=== PATIENT | female | born 1955 | race Caucasian/White ===

== ENCOUNTER → 2018-03-24 06:41 | Outpatient (CLI) | payer OTHER, SELFPAY ==
[2018-03-24 07:02] LABS: Mucous, Urine 0 SEEN /hpf (<or=2+)
[2018-03-24 08:11] LABS: Color, Urine Yellow (Yellow); Glucose, Dipstick Normal (Normal); Ketone-Dipstick Negative (Negative); Leukocyte Esterase-Dipstick 25 /ul (Negative); Nitrite-Dipstick Negative (Negative); Occult Blood-Urine 25 /ul (Negative); Protein-Dipstick 15 mg/dl (Negative); Specific Gravity, Urine 1.025 (1.002-1.030); Urine Bilirubin Dipstick Negative (Negative); Urine Clarity Clear (Clear); Urine Urobilinogen Normal (Normal)
[2018-03-24 08:18] LABS: Bacteria 1+ /hpf (None Seen); Red Blood Cells-Urine 0-5 SEEN /hpf (0-5); Squamous Epithelial Cells - UA 10-25 SEEN /hpf (5-10); White Blood Cells 0-5 SEEN /hpf (0-5)
[2018-03-24 08:31] LABS: ALB/GLOB Ratio 0.8 RATIO (0.9-2.4); AST(SGOT) 33 U/L (15-37); Alanine Aminotransfer ALT/SGPT 62 U/L (13-56); Albumin, Serum 3.5 g/dL (3.2-5.0); Alkaline Phosphatase 72 U/L (45-117); Anion Gap 11 (5-15); BUN 16 mg/dL (7-18); BUN/Creat Ratio 22.6 RATIO (10-20); Calcium,Total 8.5 mg/dL (8.5-10.1); Chloride 105 mmol/L (98-107); Creatinine, Serum 0.71 mg/dL (0.55-1.02); EST Glomerular Filtration Rate 88 mL/min (>60); Est Glom Filt Rate - Afr Amer 107 mL/min (>60); Globulin 4.2 g/dL (2.2-4.2); Glucose 200 mg/dL (74-106); Potassium 4.3 mmol/L (3.5-5.1); Protein, Total 7.7 g/dL (6.4-8.2); Sodium Level 140 mmol/L (136-145)
[2018-03-24 08:40] LABS: Hemoglobin A1c 7.4 % (4.2-6.3)
== END ==
PROVIDERS: Family Provider Family Medicine; PCP Family Medicine; Visit Provider Family Medicine
DX: E11.9 Type 2 diabetes mellitus without complications (principal); I10 Essential (primary) hypertension
CPT/HCPCS: 36415; 80053; 81001; 83036

== ENCOUNTER → 2018-09-21 08:41 | Outpatient (CLI) | payer SELFPAY ==
[2018-09-21 08:17] VITALS: BMI 43.0
[2018-09-21 08:44] LABS: Mucous, Urine 0 SEEN /hpf (<or=2+); Red Blood Cells-Urine 0 SEEN /hpf (0-5); White Blood Cells 0 SEEN /hpf (0-5)
[2018-09-21 13:41] LABS: Color, Urine Yellow (Yellow); Glucose, Dipstick Normal (Normal); Ketone-Dipstick Negative (Negative); Leukocyte Esterase-Dipstick Negative /ul (Negative); Nitrite-Dipstick Negative (Negative); Occult Blood-Urine 10 /ul (Negative); Protein-Dipstick Negative (Negative); Urine Bilirubin Dipstick Negative (Negative); Urine Clarity Sl. Cloudy (Clear); Urine Urobilinogen Normal (Normal)
[2018-09-21 13:42] LABS: Squamous Epithelial Cells - UA 0-5 SEEN /hpf (5-10)
[2018-09-21 13:43] LABS: Bacteria RARE /hpf (None Seen)
== END ==
PROVIDERS: Family Provider Family Medicine; PCP Family Medicine; Visit Provider Nurse Practitioner Family
DX: R10.9 Unspecified abdominal pain (principal)
CPT/HCPCS: 81001; 87086; 87088

== ENCOUNTER → 2018-09-23 08:36 | Outpatient (CLI) | payer OTHER, SELFPAY ==
[2018-09-21 08:17] VITALS: BMI 43.0
== END ==
PROVIDERS: Family Provider Family Medicine; PCP Family Medicine; Referring Provider Nurse Practitioner Family; Visit Provider Nurse Practitioner Family
DX: R10.9 Unspecified abdominal pain (principal)
CPT/HCPCS: 87086; 87088

== ENCOUNTER → 2018-12-21 | Outpatient (CLI) | payer OTHER, SELFPAY ==
[2018-12-13 09:00] VITALS: BMI 43.0
--- NOTE | 2018-12-21 10:10 | RAD_ITS ---
STUDY: X-RAY - CERVICAL SPINE REASON FOR EXAM: Female, 63 years old. Left-sided neck pain. No known injury. TECHNIQUE: 5 view(s) of the cervical spine were obtained including oblique views. COMPARISON: None FINDINGS: Normal anterior atlantoaxial articulation. Normal odontoid process. There is straightening of the normal cervical lordosis. There is multi-level endplate spondylosis. There is multi-level degenerative disc disease with multilevel disc space narrowing. Normal visualized intervertebral neuroforamina. The soft tissue structures are unremarkable. RAD/Cerv Spine 4 or 5 Views IMPRESSION: Multilevel spondylosis and disc space narrowing. No neural foraminal stenosis is seen. Electronically Signed: Cecilio Yoo, at 10:16 EDT , Service support ,
== END | disposition home or self-care (01) ==
LOC: RAD 10:08
PROVIDERS: Family Provider Family Medicine; PCP Family Medicine; Referring Provider Family Medicine; Visit Provider Family Medicine
DX: M54.2 Cervicalgia (principal)
CPT/HCPCS: 72050

== ENCOUNTER → 2019-07-11 11:00 | Outpatient (CLI) | payer MEDICARE, SELFPAY ==
[2019-07-11 10:44] VITALS: BMI 43.0
[2019-07-11 12:52] LABS: ALB/GLOB Ratio 0.8 RATIO (0.9-2.4); AST(SGOT) 73 U/L (15-37); Alanine Aminotransfer ALT/SGPT 114 U/L (13-56); Albumin, Serum 3.6 g/dL (3.2-5.0); Alkaline Phosphatase 93 U/L (45-117); Anion Gap 7 (5-15); BUN 15 mg/dL (7-18); BUN/Creat Ratio 17.7 RATIO (10-20); Calcium,Total 8.7 mg/dL (8.5-10.1); Chloride 101 mmol/L (98-107); Creatinine, Serum 0.85 mg/dL (0.55-1.02); EST Glomerular Filtration Rate 72 mL/min (>60); Est Glom Filt Rate - Afr Amer 87 mL/min (>60); Globulin 4.3 g/dL (2.2-4.2); Glucose 335 mg/dL (74-106); Potassium 4.2 mmol/L (3.5-5.1); Protein, Total 7.9 g/dL (6.4-8.2); Sodium Level 134 mmol/L (136-145)
== END ==
PROVIDERS: Family Provider Family Medicine; PCP Family Medicine; Visit Provider Family Medicine
DX: E11.9 Type 2 diabetes mellitus without complications (principal)
CPT/HCPCS: 36415; 80053

== ENCOUNTER → 2019-08-01 07:19 | Outpatient (CLI) | payer MEDICARE, SELFPAY ==
[2019-07-11 10:44] VITALS: BMI 43.0
--- NOTE | 2019-08-01 07:00 | BI_ITS ---
MAMMOGRAPHY - BILATERAL SCREENING REASON FOR EXAM: Female, 64 years old. Routine annual screening examination. PERTINENT HISTORY: Mother with breast cancer. History of remote bilateral breast reduction surgeries. TECHNIQUE: Digital bilateral breast cristhian (3D mammographic acquisition) in the CC and MLO projections. 2-D mediolateral oblique (MLO) and craniocaudad (CC) views of both breasts were obtained. CAD: Full Field Digital Mammography with Computer Added Detection was performed. COMPARISON: Comparison is made with prior outside examination dated September 15, 2011. FINDINGS: Breast Composition: The breasts are almost entirely fatty. Focal cluster microcalcification seen in the deep upper lateral aspect of the left breast. The patient will be recalled for additional views including magnification spot views. Stable benign appearing bilateral axillary lymph nodes. No other significant abnormalities are identified. BI/SCREEN MAMM (CAD) W/CRISTHIAN BILAT IMPRESSION: Cluster microcalcifications in the deep upper lateral aspect of the left breast as described. The patient will be recalled for additional views. Recall Side: Left Breast ASSESSMENT CATEGORY: BIRADS Category 0: Incomplete. Need additional imaging evaluation. A letter regarding these results will be sent to the patient by the facility within 30 days. Approximately 10% of breast cancers are not detected by mammography. A normal mammogram should not delay biopsy of a clinically suspicious abnormality. [id number] Electronically Signed: Cecilio Yoo, at 15:29 EST , Service support ,
--- NOTE | 2019-08-01 07:20 | US_ITS ---
STUDY: ABDOMINAL ULTRASOUND - RIGHT UPPER QUADRANT REASON FOR VISIT: Female, 64 years old ELEVATED LFTS TECHNIQUE: Ultrasound evaluation of the right upper quadrant was performed with real-time and static knight-scale imaging. TECHNICAL QUALITY: Adequate. COMPARISON: None. FINDINGS: Liver: The liver measures 16.6 cm. There is increased echogenicity of the liver. The bile ducts are within normal limits. There is hepatic color flow. The direction of portal flow is hepatopetal. There is no demonstrated mass lesion. Gallbladder: The patient is status post cholecystectomy. Common Bile Duct (C.B.D.): The common bile duct measures 8.7 mm. Pancreas: There is normal echogenicity of the visualized pancreas. There is no demonstrated pancreatic mass or cyst. Right Kidney: Normal size of the right kidney. The right kidney measures 13.0 x 5.3 x 3.9 cm. Normal renal cortex. The right cortex measures 1.9 cm. There is no demonstrated renal mass or cyst. There is no right hydronephrosis. US/Liver IMPRESSION: 1. Cholecystectomy 2. Increased echogenicity of the liver is nonspecific but most commonly associated with hepatic steatosis. Electronically Signed: Erlin Salgado MD ([place]) at 14:48 EST , Service support ,
== END ==
PROVIDERS: Family Provider Family Medicine; PCP Family Medicine; Referring Provider Family Medicine; Visit Provider Family Medicine
DX: R74.8 Abnormal levels of other serum enzymes (principal); Z12.31 Encounter for screening mammogram for malignant neoplasm of breast
CPT/HCPCS: 76705; 77063; 77067

== ENCOUNTER → 2019-08-04 13:49 | Outpatient (CLI) | payer MEDICARE, SELFPAY ==
[2019-07-11 10:44] VITALS: BMI 43.0
--- NOTE | 2019-08-04 13:49 | BI_ITS ---
MAMMOGRAPHY - UNILATERAL DIAGNOSTIC: LEFT BREAST REASON FOR EXAM: Female, 64 years old. Abnormal screening mammogram. PERTINENT HISTORY: Mother with breast cancer. TECHNIQUE: Magnification spot views of the left breast were obtained. CAD: Full Field Digital Mammography with Computer Added Detection was performed. COMPARISON: Comparison is made with prior examination dated January 30, 2020. FINDINGS: Breast Composition: The breasts are almost entirely fatty. The microcalcifications are once again seen. These are not definitely vascular in nature. A biopsy is recommended. No other significant abnormalities are identified. BI/DIAG MAMM W/CAD, UNILAT IMPRESSION: Microcalcifications are once again visualized. A biopsy is recommended. ASSESSMENT CATEGORY: BIRADS Category 4: Suspicious - Biopsy Should Be Considered. A letter regarding these results will be sent to the patient by the facility within 30 days. Approximately 10% of breast cancers are not detected by mammography. A normal mammogram should not delay biopsy of a clinically suspicious abnormality. Electronically Signed: Cecilio Yoo, at 14:40 EST , Service support ,
== END ==
PROVIDERS: Family Provider Family Medicine; PCP Family Medicine; Referring Provider Family Medicine; Visit Provider Family Medicine
DX: R92.8 Other abnormal and inconclusive findings on diagnostic imaging of breast (principal)
CPT/HCPCS: 77065

== ENCOUNTER → 2019-08-24 08:20 | Outpatient (CLI) | payer MEDICARE, SELFPAY ==
[2019-08-15 14:33] VITALS: BMI 43.0
[2019-08-17 14:54] VITALS: BMI 43.0
--- NOTE | 2019-08-24 09:00 | BRBX_PTH ---
PATIENT: DARIANA ORTEGA LOC: [facility] U#:[id number] AGE/SX: 69/F ROOM: RE08/24/[address]: Dr. Cecelia Mao MD : 1955 BED: DIS: SPEC #: [id number] RECD: 08/24/19 09:59 STATUS: ANNETTE DONA #: [id number] JESSICA: 08/24/19 09:[address]: Cecelia Mao DEPT: SURGICAL PATHOLOGY RECD BY: Jerome Contreras ENTERED: 08/24/19 10:39 SP TYPE: BREAST BX OT DR: Dr. Kj Johnson DO Tissues: Left breast, NOS Procedures: Surgery Specimen Level IV HEADER OPERATION: Left stereotactic breast biopsy PRE-OP DIAGNOSIS: Left deep upper lateral breast microcalcifications TISSUE SUBMITTED: Left breast core tissue ISCHEMIC TIME: 1 minute FIXATION TIME: 10 hours MICROSCOPIC DIAGNOSIS Left breast, deep upper lateral microcalcifications, stereotactic core biopsy: A minute fragment of hyalinized fibroadenoma with microcalcifications. Negative for atypia or malignancy. See comment. PETER:skyler 08/25/19 COMMENT The specimen predominantly consists of fatty benign breast tissue. Correlation with clinical, radiologic findings and appropriate follow up are necessary. MICROSCOPIC DESCRIPTION Slides are reviewed. GROSS DESCRIPTION Received is one container labeled with the patient's name and not further designated. The specimen consists of multiple elongated fragments of salamanca-yellow fibroadipose tissue that in aggregate measure 7.5 x 3 x 0.6 cm. The entire specimen is submitted in five cassettes. / PETER:skyler 08/24/19 TC:1 CPT: 57276
--- NOTE | 2019-08-24 09:30 | PCM.OPRPT ---
Report of Operation Date of Procedure: 08/24/19 Pre-Operative Diagnosis: Left breast microcalcifications?deep lateral upper Post-Operative Diagnosis: Same Surgery/Procedure Performed:: Stereotactic guided left breast biopsy Type of Anesthesia:: Local Specimen's removed: Left breast calcifications?upper lateral deep Estimated Blood Loss (mL): Minimal Description of Procedure: Procedure: Left stereotactic core biopsy Indications: 64 year-old female with microcalcifications in the upper lateral deep aspect of the left breast. Risk benefits were discussed the patient and she elected to proceed with stereotactic core biopsy with clip placement Description of procedure: Patient was brought into the mammography suite and laid prone on the stereotactic table. A timeout was completed verifying correct patient, procedure, site, specially, prior to beginning procedure. The left breast was prepped and draped in usual sterile fashion and using local anesthesia was obtained with 1% lidocaine with epi. Patient's left breast was positioned and placed into compression. Initial film showed calcifications are in the center of the compression paddle. 15? views were then taken. The calcifications were localized. The left breast was prepped draped in usual sterile fashion. An 8-gauge mammotome was set up according to the digital coordinates. The tract of the mammotome was anesthetized with local anesthesia and an incision was made with the 11 blade scalpel at the entry site. The mammotome was advanced to the prefire state. Pre-prior films were checked and verified. The mammotome was fired. Post fire films were also checked and verified. Biopsies were taken from 6:00 to 11:00. The specimen was x-rayed and it did not show any calcifications repeat 15 degree angle views were taken. The mammotome was advanced 5 mm and again repeat post fire 15 degree views were taken. Biopsies were taken from 6:00 to 11:00. The specimen was x-rayed and it did what appeared to be all of the calcifications. Mammotome clip was placed at the 12 o'clock position-revolve twist. The mammotome was removed from the breast. An additional films were taken which showed all calcifications were removed and a clip was in place. Pressure was held for hemostasis. Once hemostasis was assured the wound was dressed with Steri-Strips and OpSite. Patient also underwent 2 view mammography for clip verification. The patient tolerated the procedure well and was discharged from the mammography suite good condition. complications: none - Complications none
== END ==
LOC: BIRAD 08:20
PROVIDERS: PCP Family Medicine; Referring Provider Surgery; Visit Provider Surgery
DX: D24.2 Benign neoplasm of left breast (principal); R92.0 Mammographic microcalcification found on diagnostic imaging of breast; I10 Essential (primary) hypertension; M19.90 Unspecified osteoarthritis, unspecified site; E11.9 Type 2 diabetes mellitus without complications; Z79.84 Long term (current) use of oral hypoglycemic drugs; Z79.82 Long term (current) use of aspirin; Z79.899 Other long term (current) drug therapy; Z87.891 Personal history of nicotine dependence
CPT/HCPCS: 19081; 88305; J7050; A4648

== ENCOUNTER → 2020-01-04 07:54 | Outpatient (CLI) | payer MEDICARE, SELFPAY ==
[2019-09-01 09:27] VITALS: BMI 43.0
[2019-12-22 09:29] VITALS: BMI 43.0
--- NOTE | 2020-01-04 07:54 | BI_ITS ---
MAMMOGRAPHY - UNILATERAL DIAGNOSTIC: LEFT BREAST REASON FOR EXAM: Female, 64 years old. Six-month follow-up of left breast biopsy. PERTINENT HISTORY: Mother with breast cancer. TECHNIQUE: Digital unilateral breast jarek (3D mammographic acquisition) in the CC and MLO projections. 2-D mediolateral oblique (MLO) and craniocaudad (CC) views of both breasts were obtained. CAD: Full Field Digital Mammography with Computer Added Detection was performed. COMPARISON: Comparison is made with prior study dated August 01, 2019 and August 04, 2019. FINDINGS: Breast Composition: The breasts are almost entirely fatty. There are no dominant masses or suspicious calcifications. A tissue clip marker is seen in the upper deep slightly lateral aspect of the breast. The previously seen cluster of microcalcifications have decreased in number. Stable benign-appearing left axillary lymph nodes. No other significant abnormalities are identified. BI/DIAG MAMM W/CAD, UNILAT IMPRESSION: Status post stereotactic biopsy of the calcifications in the upper deep slight lateral portion of the left breast as described. Decreased number of calcifications as compared to prior study.. One year follow-up mammogram recommended. (A) ASSESSMENT CATEGORY: BIRADS Category 2: Benign. A letter regarding these results will be sent to the patient by the facility within 30 days. Approximately 10% of breast cancers are not detected by mammography. A normal mammogram should not delay biopsy of a clinically suspicious abnormality. Electronically Signed: Cecilio Yoo, at 8:46 EDT , Service support ,
== END ==
PROVIDERS: PCP Family Medicine; Referring Provider Surgery; Visit Provider Surgery
DX: R92.1 Mammographic calcification found on diagnostic imaging of breast (principal)
CPT/HCPCS: 77065

== ENCOUNTER → 2020-05-14 16:10 | Outpatient (CLI) | payer MEDICARE, SELFPAY ==
[2020-05-14 15:40] VITALS: BMI 42.7
[2020-05-14 16:57] LABS: Erythrocyte Sedimentation Rate 19 mm/hr (0-30)
[2020-05-14 16:58] LABS: Absolute Lymphocyte Count 2.98 X10^3/uL (0.83-4.51); Absolute Neutrophil Count 4.9 X10^3/uL (2.0-7.7); Basophil# 0.03 X10^3/uL; Basophil% 0.3 % (0-1); Eosinophil# 0.19 X10^3/uL; Eosinophils% 2.1 % (0-5); Hematocrit 41.6 % (37-47); Hemoglobin 13.6 g/dL (12.0-15.0); Lymphocyte # 2.98 X10^3/ul (4.0); Lymphocyte % 33.2 % (19-41); Mean Corp Hgb Conc 32.7 g/dL (32-36); Mean Corpuscular Hgb 30.3 pg (27.0-32.0); Mean Corpuscular Volume 92.7 fL (81-99); Mean Platelet Vol. 9.7 fl (6.2-12.0); Monocyte% 8.9 % (0-10); NRBC Flagged by Analyzer 0 % (0-5); Neutrophil # 4.93 X10^3/uL (2.7-7.7); Neutrophil % 54.9 % (47-70); Platelet Count 312 K/mm3 (150-450); RBC Distribution Width CV 13.9 % (11.6-14.6); RBC Distribution Width SD 47.8 fl (35.1-43.9); Red Blood Count 4.49 M/mm3 (4.2-5.4)
[2020-05-14 17:16] LABS: ALB/GLOB Ratio 0.9 RATIO (0.9-2.4); AST(SGOT) 22 U/L (15-37); Alanine Aminotransfer ALT/SGPT 43 U/L (13-56); Albumin, Serum 3.7 g/dL (3.2-5.0); Alkaline Phosphatase 72 U/L (45-117); Anion Gap 5 (5-15); BUN 15 mg/dL (7-18); BUN/Creat Ratio 17.9 RATIO (10-20); Calcium,Total 9.2 mg/dL (8.5-10.1); Chloride 104 mmol/L (98-107); Creatinine, Serum 0.84 mg/dL (0.55-1.02); EST Glomerular Filtration Rate 72 mL/min (>60); Est Glom Filt Rate - Afr Amer 88 mL/min (>60); Globulin 4.3 g/dL (2.2-4.2); Glucose 105 mg/dL (74-106); Potassium 4.2 mmol/L (3.5-5.1); Sodium Level 138 mmol/L (136-145)
== END ==
PROVIDERS: PCP Family Medicine; Referring Provider Internal Medicine; Visit Provider Internal Medicine
DX: R10.31 Right lower quadrant pain (principal)
CPT/HCPCS: 36415; 74177; 80053; 85025; 85652; Q9967; A4216

== ENCOUNTER → 2020-05-14 16:38 | Outpatient (CLI) | payer MEDICARE, SELFPAY ==
[2020-05-14 15:40] VITALS: BMI 42.7
--- NOTE | 2020-05-14 18:45 | CT_ITS ---
STUDY: CT ABDOMEN AND PELVIS WITH CONTRAST REASON FOR EXAM: Female, 64 years old. Right lower quadrant pain. RADIATION DOSAGE (If Supplied By Facility): CTDIvol = ( 18.74 ) mGy, DLP = ( 1281.21 ) mGycm TECHNIQUE: Transaxial images were obtained from the dome of the diaphragm to the symphysis pubis with oral contrast. 100 ml of ISOVUE-300 contrast was administered. Sagittal and coronal images were reconstructed. Individualized dose optimization techniques were used for this CT. COMPARISON: 06/07/17 FINDINGS: The visualized lung bases are clear. The visualized portions of the heart and pericardium are within normal limits. The patient is status post cholecystectomy. The liver is low in density, consistent with fatty infiltration. The spleen is normal in size. The pancreas is within normal limits. The adrenal glands are within normal limits. There are no renal or ureteral stones. There is no hydronephrosis. There is a 6.7 x 6.0 cm simple cyst in the left kidney. There are no right renal lesions. Normal visualized stomach. There is no bowel obstruction or inflammation. There is a large amount of stool in the colon, consistent with constipation. The appendix is not visualized, but there are no findings to suggest acute appendicitis. The aorta is normal in caliber. There is no abdominal or pelvic free air, free fluid, fluid collection or lymphadenopathy. There are no destructive osseous lesions. CT/Abdomen/Pelvis WITH Contrast IMPRESSION: No bowel obstruction or inflammation. Constipation. Appendix not identified, but no findings to suggest appendicitis. Simple cyst in the left kidney. Otherwise, normal kidneys. No hydronephrosis. Fatty liver. Electronically Signed: Marquise Correa, at 19:12 EDT Tel , Service support ,
== END ==
PROVIDERS: PCP Family Medicine; Referring Provider Internal Medicine; Visit Provider Internal Medicine
DX: R10.31 Right lower quadrant pain (principal)
CPT/HCPCS: 74177; Q9967; A4216

== ENCOUNTER 2020-05-30 07:42 | Day surgery (SDC) | payer MEDICARE, SELFPAY ==
[2020-05-20 08:43] VITALS: BMI 42.7
[2020-05-30] VITALS (7 sets, daily range): BP systolic 114–151; BP diastolic 54–69; PULSE 65–88; RESP 16; TEMP 36.3–36.6; O2SAT 94–100; BMI 42.3
[2020-05-30] MEDS: Lactated Ringers 1,000 ML 100 ML IV (08:43)
--- NOTE | 2020-05-30 09:27 | HP_ITS ---
Intake Vital Signs 05/20/20 Height 5 ft 4 in 05/20/20 Weight: 249 lb 05/20/20 BP 144/74 H 05/20/20 Blood Pressure Location Rt brachial 05/20/20 Position Sitting 05/20/20 Respiration 18 Intake Visit Reasons: Change in bowel habits Chief Complaint: RLQ pain Assistant Office Manager Required: No Is patient in pain?: Yes (RLQ abdomen) Pain scale (1-10): 5 Allergies hydrochlorothiazide [From Dyazide] Allergy (Unknown, Verified 05/20/20 08:43) Unknown triamterene [From Dyazide] Allergy (Unknown, Verified 05/20/20 08:43) Unknown bacitracin [From Neosporin ([id number])] Allergy (Verified 05/20/20 08:43) Rash latex Allergy (Verified 05/20/20 08:43) Hives neomycin [From Neosporin ([id number])] Allergy (Verified 05/20/20 08:43) Rash polymyxin B [From Neosporin ([id number])] Allergy (Verified 05/20/20 08:43) Rash Sulfa (Sulfonamide Antibiotics) Allergy (Verified 05/20/20 08:43) Unknown celecoxib [From Celebrex] Adverse Reaction (Verified 05/20/20 08:43) Other fragrances Allergy (Intermediate, Uncoded 05/20/20 08:43) headache krishan Allergy (Intermediate, Uncoded 05/20/20 08:43) headache colbolt Adverse Reaction (Intermediate, Uncoded 05/20/20 08:43) headache Medications Acetaminophen [Tylenol Arthritis] 2 tab PO DAILY 06/07/17 [History Confirmed 03/15/20] aspirin 81 mg tablet,delayed release 81 mg PO DAILY 03/23/18 [History Confirmed 03/15/20] CPAP hose and mask #1 ea 10/26/18 [Rx Confirmed 03/15/20] azelastine 137 mcg (0.1 %) nasal spray aerosol 1 spray INTRANASAL Q12H #30 ml 12/13/18 [Rx Confirmed 03/15/20] furosemide 20 mg tablet 20 mg PO DAILY #90 tab 07/11/19 [Rx Confirmed 03/15/20] CPAP supplies #1 ea 11/08/19 [Rx Confirmed 03/15/20] quinapril 10 mg tablet 10 mg PO DAILY #90 tab 05/01/20 [Rx] metformin 500 mg tablet 500 mg PO DAILY tab 05/14/20 [History] glipizide 10 mg tablet 10 mg PO DAILY 05/20/20 [History Confirmed 05/20/20] [facility] Medical History Sleep apnea (Chronic) Diabetes mellitus (Chronic) Osteoarthritis (Chronic) Seasonal allergies (Chronic) Hypertension (Chronic) Surgical History History of bilateral breast reduction surgery (Acute) History of cholecystectomy (Acute) History of knee replacement (Acute) S/P left breast biopsy (Acute) Family History Mother Breast cancer Hypertension Sister Asthma Social History (Updated 05/20/20 @ 11:[address] Luis Alberto Martin MD) Smoking Status: Former smoker how long ago did patient quit smokin alcohol intake: never substance use type: does not use what type of physical activity do you participate in: none HPI HPI HPI: DARIANA ORTEGA, is a 64 F who presents to the office today for HPI HPI Surgical H&P: Yes HPI: DARIANA ORTEGA, is a 64 F who presents to the office today for Right lower quadrant pain and change in bowel habits. Patient reports for the past few months she changed her diet and lost weight but also started having right lower quadrant pain and change in bowel habits and she has been taking fiber Gummies. She reports she has daily bowel movements but on CT scan there is an abundance of stool in the right colon. She has never had screening colonoscopy and denies any blood in her stool. She has no family history of colon cancer. ROS General General: Yes fatigue; no weight change, colon cancer, breast cancer or weakness HEENT HEENT: No difficulty swallowing, eye injury, eye surgery, swollen glands or hoarseness Endo Endocrine: Yes diabetes mellitus; no thyroid disease, thyroid cancer, Hair loss, heat intolerance or cold intolerance Skin Skin: No rash or changing moles Breast Breast: Yes breast pain (Occasionally in the right breast however only last for couple of mins) and abnormal mammogram; no left breast lump, right breast lump, nipple discharge, abnormal US or breast enlargement Musc Musculoskeletal: Yes back problems and arthritis; no rheumatoid arthritis, gout or joint pain Cardio Cardiovascular: Yes high blood pressure; no murmur, pacemaker, heart disease, atrial fibrillation, heart attack, heart stent, palpitations, shortness of breat with exertion or chest pain Psych Psychiatric: No depression, anxiety or hearing voices Resp Respiratory: No shortness of breath, Yes sleep apnea, No cough, No COPD, No asthma, No emphysema, No wheezing Gastro Gastrointestinal: No abdominal pain, No nausea or vomiting, No diarrhea, No constipation, No blood in stool, No acid reflux, Yes hemorrhoids, No ulcers, No gallbladder problem, No black,tarry stools Uriah Hematologic: No blood thinners, No blood disorders, No bleeding, No anemia, No blood clots Neuro Neurologic: No system reviewed and no additional complaints, except as docu, No as per HPI, No abnormal walking, No abnormal hearing, No abnormal movements, No abnormal speech, No behavioral changes, No burning sensations, No confusion, No seizure-like activity, No unsteadiness, No dizziness, No localized weakness, No frequent falls, No headache(s), No lack of coordination, No loss of vision, No memory loss, No numbness, No other visual disturbances, No radiating pain, No restless legs, No sensory deficit, No fainting, No tingling, No tremor(s), No weakness, No other Exam Const General: cooperative Orientation: alert, oriented x3 Chest Breast Palpation: No nipple discharge Resp Effort & Inspection: normal respiratory effort Auscultation: clear to auscultation bilaterally Cardio Rate: regular rate Rhythm: regular rhythm Heart Sounds: no murmurs GI Inspection: non-distended Palpation: soft, tender in the RLQ Assessment & Plan Problems 1. RLQ abdominal pain R10.31 Plan Patient is having right lower quadrant pain and change in bowel habit. I recommended colonoscopy for the patient. I believe performing the bowel prep may also be therapeutic and diagnostic. I explained endoscopy in detail to the patient. I explained the risks including but not limited to stroke or heart attack with anesthesia, perforation of the GI tract, bleeding, infection. I explained that any of these could necessitate further emergency surgery. The patient understands and all questions were answered sufficiently. The patient wishes to proceed with procedure. We discussed the current risks associated with COVID-19. While it is understood that there is a community spread of COVID-19, the risk of nicolas COVID-19 while at [facility] ([facility]) is very low; however, the risk cannot be completely mitigated because of the community spread of the disease. We discussed in detail the risk of exposure to and/or potential harm posed by the COVID-19 virus with having a surgery/procedure at this time versus the risk of delaying the surgery/procedure. It is not possible to know either the risk of delaying the surgery or procedure or chance of getting an infection with perfect accuracy, but a joint decision was made to proceed at this time with the scheduled surgery/procedure as indicated on the consent form. Patient was notified that we will need to comply with any screening or testing [facility] wishes to perform or that surgery may be delayed for any positive results. Luis Alberto Martin MD Pager: [facility] [address] [place] [address], [address] [place] [address] Office: Orders Orders: Colonoscopy Today R10.31 Coding Level of Care Code Off vis,new,level 3 Diagnoses RLQ abdominal pain R10.31 I have re-examined the patient. There are no clinical changes since date of exam.
--- NOTE | 2020-05-30 09:35 | OP.CCLET_ITS ---
05/30/2020 Kj Johnson Re : Colonoscopy procedure for Ally Weems Dear Dr. Johnson This procedure was performed on May. My impressions and recommendations are as follows: Impressions : - The entire examined colon is normal on direct and retroflexion views. - No specimens collected. Recommendations : - Discharge patient to home. - Resume previous diet. - Continue present medications. - Repeat colonoscopy in 10 years for screening purposes. My findings are described in the full procedure note, which is enclosed. If I can be of further assistance, please feel free to contact me at Doctor phone number(s): , Work: . Sincerely, Luis Alberto Martin MD 05/30/2020 9:34:53 AM This report has been signed electronically.
--- NOTE | 2020-05-30 09:35 | OP.COLON_ITS ---
Patient Name: Ally Weems Procedure Date: 05/30/2020 9:08 AM Date of : 1955 Age: 64 Procedure: Colonoscopy Indications: Abdominal pain in the right lower quadrant Providers: Luis Alberto Martin MD Referring MD: Kj Johnson Medicines: Monitored Anesthesia Care Patient Profile: This is a 64 year old female. Refer to note in patient chart for documentation of history and physical. Last Colonoscopy: none. The patient's first colonoscopy is today. Complications: No immediate complications. Procedure: Pre-Anesthesia Assessment: - Prior to the procedure, a History and Physical was performed, and patient medications and allergies were reviewed. The patient's tolerance of previous anesthesia was also reviewed. The risks and benefits of the procedure and the sedation options and risks were discussed with the patient. All questions were answered, and informed consent was obtained. Prior Anticoagulants: The patient has taken no previous anticoagulant or antiplatelet agents. After reviewing the risks and benefits, the patient was deemed in satisfactory condition to undergo the procedure. After I obtained informed consent, the scope was passed under direct vision. Throughout the procedure, the patient's blood pressure, pulse, and oxygen saturations were monitored continuously. The pediatric colonoscope was introduced through the anus and advanced to the cecum, identified by appendiceal orifice and ileocecal valve. The quality of the bowel preparation was good. Scope In: 9:14:06 AM Scope Withdrawal Time 0 hours 6 minutes 18 seconds Scope Out: 9:27:12 AM Total Procedure Duration Time 0 hours 13 minutes 6 seconds Findings: The entire examined colon appeared normal on direct and retroflexion views. Impression: - The entire examined colon is normal on direct and retroflexion views. - No specimens collected. Recommendation: - Discharge patient to home. - Resume previous diet. - Continue present medications. - Repeat colonoscopy in 10 years for screening purposes. Procedure Code(s): --- Professional --- 92494, Colonoscopy, flexible; diagnostic, including collection of specimen(s) by brushing or washing, when performed (separate procedure) Diagnosis Code(s): --- Professional --- R10.31, Right lower quadrant pain CPT copyright 2017 [employer]. All rights reserved. The codes documented in this report are preliminary and upon letter of credit clerk review may be revised to meet current compliance requirements. Luis Alberto Martin MD 05/30/2020 9:34:53 AM This report has been signed electronically. Number of Addenda: 0 Note Initiated On: 05/30/2020 9:08 AM
[2020-05-30 10:26] LABS: Bedside Glucose 144 mg/dL (70-110)
== END 2020-05-30 10:22 | disposition home or self-care (01) ==
LOC: EN 07:42 → AC 07:43
PROVIDERS: PCP Family Medicine; Referring Provider Family Medicine; Visit Provider Surgery
PROC: 0DJD8ZZ Inspection of Lower Intestinal Tract, Via Natural or Artificial Opening Endoscopic (ICD-10-PCS; CPT 45378; principal; 2020-05-30 08:55)
DX: R19.4 Change in bowel habit (principal); R10.31 Right lower quadrant pain; Z11.59 Encounter for screening for other viral diseases; I10 Essential (primary) hypertension; E11.9 Type 2 diabetes mellitus without complications; G47.30 Sleep apnea, unspecified; M19.90 Unspecified osteoarthritis, unspecified site; Z78.0 Asymptomatic menopausal state; Z79.82 Long term (current) use of aspirin; Z79.84 Long term (current) use of oral hypoglycemic drugs; Z79.899 Other long term (current) drug therapy; Z87.891 Personal history of nicotine dependence
CPT/HCPCS: 45378; 82962; 87426; C9803; J7120

== ENCOUNTER → 2020-06-05 15:22 | Outpatient (CLI) | payer MEDICARE, SELFPAY ==
[2020-06-05 14:54] VITALS: BMI 38.6
[2020-06-05 15:25] LABS: Mucous, Urine 0 SEEN /hpf (<or=2+); Red Blood Cells-Urine 0 SEEN /hpf (0-5); White Blood Cells 0 SEEN /hpf (0-5)
--- NOTE | 2020-06-05 15:47 | RAD_ITS ---
STUDY: X-RAY - THORACIC SPINE REASON FOR EXAM: Female, 64 years old. back pain x 2 months TECHNIQUE: 3 view(s) of the thoracic spine were obtained. COMPARISON: None. FINDINGS: Normal kyphosis of the thoracic spine. Mild dextroscoliosis. There is multilevel endplate spondylosis of the thoracic vertebrae. There is multilevel disc space narrowing of the thoracic spine. The soft tissue structures are unremarkable. RAD/Thoracic Spine 2 Views IMPRESSION: Mild dextroscoliosis with moderate diffuse degenerative disc disease. Electronically Signed: Luís Conway MD at 16:05 EST Tel , Service support ,
[2020-06-05 17:06] LABS: Glucose, Dipstick Normal (Normal); Ketone-Dipstick Negative (Negative); Leukocyte Esterase-Dipstick Negative /ul (Negative); Nitrite-Dipstick Negative (Negative); Occult Blood-Urine Negative /ul (Negative); Protein-Dipstick Negative (Negative); Specific Gravity, Urine 1.015 (1.002-1.030); Urine Bilirubin Dipstick Negative (Negative); Urine Urobilinogen Normal (Normal)
[2020-06-05 17:08] LABS: Color, Urine Yellow (Yellow); Urine Clarity Clear (Clear)
[2020-06-05 17:23] LABS: Bacteria RARE /hpf (None Seen); Squamous Epithelial Cells - UA 0-5 SEEN /hpf (5-10)
== END ==
PROVIDERS: PCP Family Medicine; Referring Provider Family Medicine; Visit Provider Family Medicine
DX: R10.9 Unspecified abdominal pain (principal); G89.29 Other chronic pain
CPT/HCPCS: 36415; 72070; 81001

== ENCOUNTER → 2020-06-13 17:39 | Outpatient (CLI) | payer MEDICARE, SELFPAY ==
[2020-06-05 14:54] VITALS: BMI 38.6
--- NOTE | 2020-06-13 17:40 | MRI_ITS ---
HISTORY: RT SIDED BACK PAIN NO KNOWN INJURY, NO EXTREMITIES N/T TECHNIQUE: Routine MRI of the cervical spine was performed without IV contrast. COMPARISON: Thoracic spine radiograph 06/05/2020 FINDINGS: Number of images including paperwork: 169 Mild to moderate multilevel discogenic degenerative changes. Small left paracentral disc osteophyte complex at T5-6. Small to moderate central disc protrusion at T7-8. Small to moderate right paracentral disc osteophyte complex at T8-9. Small to moderate central disc protrusion at T10-11. No acute fracture. No subluxation. No critical canal or foraminal stenosis. T1 and T2 hyperintense lesions within T5, T6 and T7 compatible with hemangiomas. Normal visualized spinal cord. MRI/Spine Thoracic (Routine) IMPRESSION: No acute findings. Thoracic spondylosis as detailed. at 2324 Reported and signed by: Viktoriya Kapadia MD Electronically Signed: Viktoriya Kapadia MD at 23:24 EST Tel , Service support ,
== END ==
PROVIDERS: PCP Family Medicine; Referring Provider Family Medicine; Visit Provider Family Medicine
DX: M47.814 Spondylosis without myelopathy or radiculopathy, thoracic region (principal)
CPT/HCPCS: 72146

== ENCOUNTER 2020-08-15 17:58 | Outpatient (RCR) | payer MEDICARE, SELFPAY ==
[2020-06-05 14:54] VITALS: BMI 38.6
== END 2020-08-15 19:00 | disposition home or self-care (01) ==
LOC: PT 17:58
PROVIDERS: PCP Family Medicine
DX: R69 Illness, unspecified (principal)

== ENCOUNTER 2020-09-11 16:30 | Outpatient (RCR) | payer MEDICARE, SELFPAY ==
[2020-06-05 14:54] VITALS: BMI 38.6
--- NOTE | 2020-06-19 16:14 | HP.PTEVAL_ITS ---
Patient's Visit Information DARIANA ORTEGA is a 64 year old F referred to Physical Therapy by Dr. Kj Johnson DO with a diagnosis of thoracic IVDD. Date of Evaluation: 06/19/20 Physical Therapist: Himanshu Bernal DPT, OCS, CSCS - Visit Plan Frequency: 2x /Week Duration: 4-6 Weeks Plan: 2x/week for 4 weeks for aquatic therapy for spinal ROM emphasize rotation and extension/flexion. hip flexor and quad and HS stretches. Core adn LE /postural strength. Teach for HEP - Subjective R sided pain for 3 months insidiously. Colonoscopy and MRI were OK. Now it hurts in side and in R LB and around to front. 3 weeks ago started in back. Pa in is intermittent. Movement is worse. Sitting at desk hurts. Leaning can make it hurt. Walking with cane helps keep hurts upright and hurts less. Pain is 6/10 at most while sitting at desk. Goes down to 3/10 when sitting in recliner with feet up. Huts to get out of recliner. Sleep is not great , toss and turn to find spot. Sleeps on L side or stomach. Works at [employer] sitting on butt on [employer] 8 hours to 10 5 days per week. No worse after work. Basic ADs are I, reaching around to wipe behind is painful. Hobbies are crafting sitting and movies and can do these. - Pain R LB Pain Intensity (Out of 10): 4 Pain Intensity Range: 3, 5 - Objective Walk with cane safe adn I, can go slowly without pain but leans R slightly. I with bed adn chair trasnfers requiring UE. Tender slightly in R lower thoracic paraspinals. Posture is flat lordosis and kyphotic T/S. spinal multisegmental ROM ext max limited adn painful R, flexion lower lumbar stiff and no pain, R SB hurts adn mod limtied, L SB min limited without pain. HS and quads mod tight., hip flexors max tight. Sensation LE WNL to gross light touch. reflexes 2/3 patella and achilles. Strength LE 4-/5 without myotomal problems, core strength 3/5. - slump and - SLR. - Goals Goal 1:: Wipe rear end without pain after bathroom Goal Time Frame: 4-6 Weeks Goal 2:: Pt feel pain is 75% improved adn 1/10 at worst Goal Time Frame: 4-6 Weeks Goal 3:: Walk without increasing pain around house Goal Time Frame: 4-6 Weeks Goal 4:: Sleep without tossing adn turning. Goal Time Frame: 4-6 Weeks Goal 5:: Oswestry score 9 or less. Goal Time Frame: 4-6 Weeks - Rehabilitation Potential Physical Therapy Diagnosis: DDD Rehabilitation Potential: Fair - Anticipated Interventions Patient/Client Instruction: Educate patient on: Condition, Plan of Care For the Purpose of:: To decrease pain, To increase ROM, To improve muscle performance and motor function, To increase tolerance to activity/condition/position, To improve ability of physical actions for home/community/work/leisure Therapeutic Exercise to Include: Strength training, Postural training, Flexibilty training, In an aquatic setting, Passive ROM, Active ROM, Dynamic Lumbar Stabilization For the Purpose of:: To decrease pain, To increase ROM, To improve muscle performance and motor function, To improve ability of physical actions for home/community/work/leisure, To improve gait and locomotor functions Thank you for the opportunity to evaluate your patient. For Medicare and Medicare HMO plans, please review the plan of care and approve it. It will need to be FAXED BACK to us at [phone] for Medicare purposes. For Medicare only, by signing this I certify the plan of care. Please let me know if there are questions or concerns regarding this plan of care. Physician Signature:_ Date:
--- NOTE | 2020-07-17 15:49 | HP.PTREVAL_ITS ---
Dr. Kj Johnson, DO, It has been my pleasure to treat DARIANA ORTEGA over the last 9 visits for thoracic IVDD. Please see the progress note below for an update on the physical therapy plan of care! Subjective: Did well, no cane needed anymore. 2/10 pain intermittently in R LB and L hip. Overall feels 50% better. Does HEP. Sleep is interrupted every now and then on L hip. activities normal. Reaching bottom to clean up much better. Wants to continue in the pool and exit strategy to joint. Objective/Function: Walks well with good balance, steps slow but reciprocal with one rail up and down, l leg obviously slightly weaker. Plan Plan: Continue in pool 2x/week for 4 weeks to work toward I with overall program in [facility] and toward goals, fair prognosis Goals Goal 1:: Wipe rear end without pain after bathroom Goal Time Frame: 4-6 Weeks Goal Progress: Progressing Goal 2:: Pt feel pain is 75% improved adn 1/10 at worst Goal Time Frame: 4-6 Weeks Goal Progress: Progressing Goal 3:: Walk without increasing pain around house Goal Time Frame: 4-6 Weeks Goal Progress: Goal Met Goal 4:: Sleep without tossing adn turning. Goal Time Frame: 4-6 Weeks Goal Progress: better Goal 5:: Oswestry score 9 or less. Goal Time Frame: 4-6 Weeks Goal Progress: Progressing Goal 6:: Walk at store without pain. Goal Time Frame: 2-4 Weeks Goal Progress: NEW GOAL Anticipated Interventions Patient/Client Instruction: Educate patient on: Condition, Plan of Care For the Purpose of:: To decrease pain, To increase ROM, To improve muscle performance and motor function, To increase tolerance to activity/condition/position, To improve ability of physical actions for home/community/work/leisure Therapeutic Exercise to Include: Strength training, Postural training, Flexibilty training, In an aquatic setting, Passive ROM, Active ROM, Dynamic Lumbar Stabilization For the Purpose of:: To decrease pain, To increase ROM, To improve muscle performance and motor function, To improve ability of physical actions for home/community/work/leisure, To improve gait and locomotor functions Please do not hesitate to contact me at [phone] by phone or if you have questions or concerns regarding this new plan of care! Sincerely, Himanshu Bernal, DPT, OCS, CSCS
--- NOTE | 2020-08-15 17:17 | HP.PTDCSUM ---
It has been my pleasure to treat DARIANA ORTEGA referred by Dr. Kj Johnson DO, with the diagnosis of thoracic IVDD for a total of 17 visit(s). Discharge Date: 08/15/20 Please see the following information for a summary of their discharge status. Subjective: Done in pool.. Don't need cane anymore. May or may not keep it up. Back pain is going OK. 08/04 with walking too much. L hip has been hurting and has a script for that and it makes her limp which may cause some of the back pain. No f/u with Alex Ruiz scheduled. Would like to learn machines for sternghening adn willhave more therapy for hip with script from Dr. Kovacs today. Could get in the pool and ex now on her own but not sure she wants to. R LB Pain Intensity (Out of 10): 0 LLE Pain Intensity (Out of 10): 2 L hip Pain Intensity (Out of 10): 4 % Improvement: 99 Objective/Function: Moving well without increased pain in LB multi segmental motion. Pt could adn may continue in water but wishes to address L hip Pain(new script) and then work toward a gym program so that she will nto have to get in water all the time. This is appropriate. Goal 1:: Wipe rear end without pain after bathroom Goal Progress: Goal Met Goal 2:: Pt feel pain is 75% improved adn 1/10 at worst Goal Progress: Goal Met Goal 3:: Walk without increasing pain around house Goal Progress: Goal Met Goal 4:: Sleep without tossing adn turning. Goal Progress: Goal Met Goal 5:: Oswestry score 9 or less. Goal Progress: Goal Met Goal 6:: Walk at store without pain. Goal Progress: Progressing Plan: d/c current chart in favor of hip chart starting today. Discharge Comments: Will work in land exercise strength with new chart for hip bursitis. If there are questions or concerns regarding this patient's physical therapy, please feel free to call me at [phone]. Thank you for the referral of this patient. Sincerely, Himanshu Bernla, DPT, OCS, CSCS
--- NOTE | 2020-08-15 18:01 | HP.PTEVAL2_ITS ---
Patient's Visit Information DARIANA ORTEGA is a 65 year old F referred to Physical Therapy by Dr. Kj Johnson DO with a diagnosis of L trochanteric bursitis. Date of Evaluation: 08/15/20 Physical Therapist: Himanshu Bernal, LINETTET, OCS, CSCS - Visit Plan Frequency: 3x /Week Duration: 4-6 Weeks Plan: 3x/week for 3-6 weeks... 1. US with hydrocortisone cream (in meds cabinet). 2. rollout and stretch L ITB, quad and HS, L leg pull and PROM hip. 3. hip strength mat table to HEP. 4. Once hip doing better, please instruct patient in machine based LE /core strength and progress to gym membership as condition allows. - Subjective Subjective: detention lateral hip pain. Wkaes her up at night as she sleeps on L side. Walking longer than she hurts and starts to waddles. Pain keeps her from walking long distance. Can lean on cart and get through but it hurts once she gets home. Works sitting at desk until she gets up and then more so. 14 steps at home adn tends to use right foot due to this pain. - Pain L hip lateral Intensity: 4 Pain Intensity Range: 0, 8 - Objective Objective: L slight antalgia today. L itb tight as is the right side. Tenderness maximally over l greater Trochanter. HS Min tight at -30 90/90 adn quads max tight B. reflexes patella and achilles 2/3. Sensation LE WNL to g ross lgiht touch. Strength LE 4/5 and pain with abduction. Steps reciprocal with one rail but prefers R as L is painful. Hip PROM symmetrical and slight pain FADDIR and JAYASHREE laterallya t hip. - Goals Goal 1:: Abolish pain in L hip with grocery trip Goal Time Frame: 4-6 Weeks Goal 2:: Steps with either foot without pain, one rail. Goal Time Frame: 4-6 Weeks Goal 3:: Pt feel leg pain and activitiy limitations are 80% better Goal Time Frame: 4-6 Weeks Goal 4:: I in appropriate gym based LB and LE strengthening as she will jooin as a member. Goal Time Frame: 4-6 Weeks Goal 5:: 55/80 LEFS score Goal Time Frame: 4-6 Weeks - Rehabilitation Potential Physical Therapy Diagnosis: L trochanteric bursits Rehabilitation Potential: Fair - Anticipated Interventions Patient/Client Instruction: Educate patient on: Condition, Plan of Care For the Purpose of:: To decrease pain, To improve muscle performance and motor function Therapeutic Exercise to Include: Strength training, Postural training, Flexibilty training, Passive ROM, Active ROM For the Purpose of:: To decrease pain, To improve nutrient delivery to tissue, To improve muscle performance and motor function, To increase tolerance to activity/condition/position Manual Therapy Techniques to Include: Mobilization, Passive ROM, Soft tissue mobilization For the Purpose of:: To decrease pain, To improve nutrient delivery to tissue, To improve muscle performance and motor function, To increase tolerance to activity/condition/position, To improve ability of physical actions for home/community/work/leisure, To improve gait and locomotor functions Ultrasound (thermal/non thermal): Yes - with hydrocortisone cream For the Purpose of:: To decrease pain, To decrease swelling/inflammation Thank you for the opportunity to evaluate your patient. For Medicare and Medicare HMO plans, please review the plan of care and approve it. It will need to be FAXED BACK to us at [phone] for Medicare purposes. For Medicare only, by signing this I certify the plan of care. Please let me know if there are questions or concerns regarding this plan of care. Physician Signature: Date:
--- NOTE | 2020-09-11 16:48 | HP.PTDS(2)_ITS ---
It has been my pleasure to treat DARIANA ORTEGA referred by MARJAN LIZAMA, with the diagnosis of L trochanteric bursitis for a total of 8 visit(s). Discharge Date: 09/11/20 Please see the following information for a summary of their discharge status. Subjective: Hip is not perfect but better than it was. Pain this week has been 1-2/10 intermittently. Lying on L side brings it on as does steps. USS not overly helpful. stretchin at home adn has gym workout she will continue. Will see Dr. Johnson sometime soon. Not following up with ortho. Back is doing well also. Will join and continue workout. % Improvement: 30 Objective/Function/Assessment: ITB still slightly tight L, moderately tender over L GT but very local and not radiating aout anymore. Gait is safe and I. Has 4/5 hip abd strength adn 4- ext strength without pain today. Pt has done well and wishes to continue I at home and as member aat . Patient Goals: Decrease Pain Other Goals: walk straighter Goal 1:: Abolish pain in L hip with grocery trip Goal Progress: Goal Met Goal 2:: Steps with either foot without pain, one rail. Goal Progress: Progressing Goal 3:: Pt feel leg pain and activitiy limitations are 80% better Goal Progress: 30% Goal 4:: I in appropriate gym based LB and LE strengthening as she will jooin as a member. Goal Progress: Goal Met Goal 5:: 55/80 LEFS score Goal Progress: near met. Plan: d/c [facility] strength via [facility] membership. If there are questions or concerns regarding this patient's physical therapy, please feel free to call me at [phone]. Thank you for the referral of this patient. Sincerely, Himanshu Bernal, DPT, OCS, CSCS
== END 2020-09-11 19:00 | disposition home or self-care (01) ==
LOC: PT 16:30
PROVIDERS: PCP Family Medicine; Referring Provider Family Medicine
DX: M51.24 Other intervertebral disc displacement, thoracic region (principal)
CPT/HCPCS: 97035; 97110; 97113; 97162; 97164; 97530

== ENCOUNTER → 2020-11-09 | Outpatient (CLI) | payer MEDICARE, SELFPAY | END | disposition home or self-care (01) | PROVIDERS: PCP Family Medicine; Referring Provider Nurse Practitioner Family; Visit Provider Nurse Practitioner Family | DX: Z11.52 Encounter for screening for COVID-19 (principal) | CPT/HCPCS: 87635; U0002 ==

== ENCOUNTER → 2021-01-14 08:32 | Outpatient (CLI) | payer MEDICARE, SELFPAY ==
[2020-12-03 09:08] VITALS: BMI 38.6
--- NOTE | 2021-01-14 08:34 | BI_ITS ---
MAMMOGRAPHY - BILATERAL SCREENING 3-D TOMOSYNTHESIS REASON FOR EXAM: Female, 65 years old. Screening for breast cancer, PERTINENT HISTORY: No significant family history. TECHNIQUE: 2-D mammograms and 3-D Tomosynthesis of the breast (s) were performed. CAD was performed. COMPARISON: 08/01/2019. FINDINGS: The breast composition is scattered fibroglandular tissue. No evidence of spiculated lesion, microcalcifications, skin thickening or nipple retraction. The previously described cluster of microcalcifications in the upper-outer quadrant in the left breast are no longer identified instead there is a metallic clip in the area which indicates Mammotome resection of these calcifications . Minimal calcifications are seen in the around the nipple which are skin type calcifications that were present previously. BI/SCRN MAMM (CAD)W/CRISTHIAN BILAT IMPRESSION: Interval removal of the cluster of microcalcifications upper outer quadrant of the left breast with the metallic marker insertion the area. No mammographic signs of malignancy. Routine yearly mammograms recommended. ASSESSMENT CATEGORY: BIRADS Category 1: Negative. A letter regarding these results will be sent to the patient by the facility within 30 days. FOLLOW UP RECOMMENDATION: Yearly follow up mammogram recommended. (A) Approximately 10% of breast cancers are not detected by mammography. A normal mammogram should not delay biopsy of a clinically suspicious abnormality. Electronically Signed: Aurea Marques, at 13:27 EDT Tel , Service support ,
== END ==
PROVIDERS: PCP Family Medicine; Referring Provider Surgery; Visit Provider Surgery
DX: Z12.31 Encounter for screening mammogram for malignant neoplasm of breast (principal); R92.8 Other abnormal and inconclusive findings on diagnostic imaging of breast
CPT/HCPCS: 77063; 77067

== ENCOUNTER 2021-07-18 11:18 | Outpatient (CLI) | payer MEDICARE, SELFPAY ==
[2021-07-18 11:23] VITALS: BP 165/65; PULSE 89; RESP 20; TEMP 38.1; O2SAT 93; BMI 44.6
[2021-07-18] MEDS: 0.9% Saline Lock 10 ML Syringe IV (11:23)
[2021-07-18 12:30] VITALS: BP 131/64; PULSE 86; RESP 18; TEMP 38.2; O2SAT 93
[2021-07-18] MEDS: Acetaminophen 325 MG Tablet 650 MG PO (12:37)
[2021-07-18 13:23] VITALS: BP 135/65; PULSE 95; RESP 16; TEMP 38.6; O2SAT 94
== END 2021-07-18 13:30 | disposition home or self-care (01) ==
LOC: MS3OUT 11:19 → MS3 11:19
PROVIDERS: PCP Family Medicine; Referring Provider Nurse Practitioner Acute Care; Visit Provider Nurse Practitioner Acute Care
DX: Z23 Encounter for immunization (principal); U07.1 COVID-19
CPT/HCPCS: J7050; M0245; Q0245; A4216

== ENCOUNTER 2021-09-08 16:13 | Outpatient (CLI) | payer MEDICARE, SELFPAY ==
[2021-09-08 17:18] LABS: Microalbumin,Random Urine < 5.0 mg/L (NO RANGE EST.)
[2021-09-08 17:35] LABS: ALB/GLOB Ratio 0.8 RATIO (0.9-2.4); AST(SGOT) 32 U/L (15-37); Alanine Aminotransfer ALT/SGPT 69 U/L (13-56); Albumin, Serum 3.5 g/dL (3.2-5.0); Alkaline Phosphatase 65 U/L (45-117); Anion Gap 6 (5-15); BUN 16 mg/dL (7-18); BUN/Creat Ratio 18.8 RATIO (10-20); Calcium,Total 9.4 mg/dL (8.5-10.1); Chloride 103 mmol/L (98-107); Cholesterol 226 mg/dL (200); Creatinine, Serum 0.85 mg/dL (0.55-1.02); EST Glomerular Filtration Rate 71 mL/min (>60); Est Glom Filt Rate - Afr Amer 86 mL/min (>60); Globulin 4.4 g/dL (2.2-4.2); Glucose 150 mg/dL (74-106); High Density Lipoprotein 37 mg/dL; Protein, Total 7.9 g/dL (6.4-8.2); Sodium Level 137 mmol/L (136-145); Triglycerides 204 mg/dL; Very Low Density Lipoprotein 41 mg/dL (5-40)
== END 2021-09-08 23:59 | disposition home or self-care (01) ==
LOC: BIMLAB 16:15
PROVIDERS: PCP Family Medicine; Referring Provider Family Medicine; Visit Provider Family Medicine
DX: E11.40 Type 2 diabetes mellitus with diabetic neuropathy, unspecified (principal); I10 Essential (primary) hypertension
CPT/HCPCS: 36415; 80053; 80061; 82043; 82570

== ENCOUNTER 2021-11-13 13:00 | Outpatient (RCR) | payer MEDICARE, SELFPAY | END 2021-11-22 23:59 | LOC: DC 13:00 | PROVIDERS: PCP Family Medicine; Referring Provider Family Medicine; Visit Provider Family Medicine | DX: E11.9 Type 2 diabetes mellitus without complications (principal) | CPT/HCPCS: 97802; G0108 ==

== ENCOUNTER 2021-12-17 16:15 | Outpatient (RCR) | payer MEDICARE, SELFPAY | END 2021-12-23 23:59 | LOC: DC 16:15 | PROVIDERS: PCP Family Medicine; Referring Provider Family Medicine; Visit Provider Family Medicine | DX: E11.9 Type 2 diabetes mellitus without complications (principal) | CPT/HCPCS: 97803; G0108 ==

== ENCOUNTER 2022-01-19 07:48 | Outpatient (RCR) | payer MEDICARE, SELFPAY | END 2022-01-22 23:59 | LOC: DC 07:48 | PROVIDERS: PCP Family Medicine; Referring Provider Family Medicine; Visit Provider Family Medicine | DX: E11.9 Type 2 diabetes mellitus without complications (principal) | CPT/HCPCS: 97803 ==

== ENCOUNTER → 2022-04-20 | Outpatient (CLI) | payer MEDICARE, SELFPAY ==
--- NOTE | 2022-04-20 13:41 | BI_ITS ---
MAMMOGRAPHY - BILATERAL SCREENING REASON FOR EXAM: Female, 66 years old. Routine annual screening examination. PERTINENT HISTORY: Mother with breast cancer. Prior left stereotactic breast biopsy. TECHNIQUE: Digital bilateral breast cristhian (3D mammographic acquisition) in the CC and MLO projections. 2-D mediolateral oblique (MLO) and craniocaudad (CC) views of both breasts were obtained. CAD: Full Field Digital Mammography with Computer Added Detection was performed. COMPARISON: Comparison is made with prior examination dated 01/14/2021. FINDINGS: Breast Composition: The breasts are almost entirely fatty. There are no dominant masses or suspicious calcifications. A tissue clip marker is seen in the upper slightly lateral portion of the left breast. Stable small benign-appearing bilateral axillary lymph nodes. No other significant abnormalities are identified. There has been no significant change since the prior study. BI/SCRN MAMM (CAD)W/CRISTHIAN BILAT IMPRESSION: Stable bilateral screening mammogram. Yearly follow-up mammogram recommended. (A) ASSESSMENT CATEGORY: BIRADS Category 2: Benign. A letter regarding these results will be sent to the patient by the facility within 30 days. Approximately 10% of breast cancers are not detected by mammography. A normal mammogram should not delay biopsy of a clinically suspicious abnormality. [id number] Electronically Signed: Cecilio Yoo MD at 14:23 EDT ,
== END | disposition home or self-care (01) ==
LOC: OPBI 13:39
PROVIDERS: PCP Family Medicine; Visit Provider Family Medicine
DX: Z12.31 Encounter for screening mammogram for malignant neoplasm of breast (principal)
CPT/HCPCS: 77063; 77067

== ENCOUNTER → 2022-07-13 | Outpatient (CLI) | payer MEDICARE, SELFPAY | END | disposition home or self-care (01) | LOC: LABSPEC 14:32 | PROVIDERS: PCP Family Medicine; Visit Provider Physician Assistant | DX: R05.9 Cough, unspecified (principal) | CPT/HCPCS: 87635; U0003; U0005 ==

== ENCOUNTER → 2022-11-07 | Outpatient (CLI) | payer MEDICARE, SELFPAY ==
[2022-11-07 09:13] LABS: ALB/GLOB Ratio 0.9 RATIO (0.9-2.4); AST(SGOT) 25 U/L (15-37); Alanine Aminotransfer ALT/SGPT 46 U/L (13-56); Albumin, Serum 3.4 g/dL (3.2-5.0); Alkaline Phosphatase 69 U/L (45-117); Anion Gap 3 (5-15); BUN 11 mg/dL (7-18); BUN/Creat Ratio 15.1 RATIO (10-20); Calcium,Total 8.8 mg/dL (8.5-10.1); Chloride 107 mmol/L (98-107); Cholesterol 221 mg/dL (200); Creatinine, Serum 0.73 mg/dL (0.55-1.02); EST Glomerular Filtration Rate 84 mL/min (>60); Est Glom Filt Rate - Afr Amer 102 mL/min (>60); Globulin 3.8 g/dL (2.2-4.2); Glucose 175 mg/dL (74-106); High Density Lipoprotein 39 mg/dL; Protein, Total 7.2 g/dL (6.4-8.2); Sodium Level 138 mmol/L (136-145); Triglycerides 109 mg/dL; Very Low Density Lipoprotein 22 mg/dL (5-40)
== END | disposition home or self-care (01) ==
LOC: LAB 08:41
PROVIDERS: PCP Family Medicine; Referring Provider Family Medicine; Visit Provider Family Medicine
DX: K76.0 Fatty (change of) liver, not elsewhere classified (principal); I10 Essential (primary) hypertension
CPT/HCPCS: 36415; 80053; 80061

== ENCOUNTER → 2023-05-19 | Outpatient (CLI) | payer MEDICARE, SELFPAY ==
--- NOTE | 2023-05-19 06:58 | BI_ITS ---
MAMMOGRAPHY - BILATERAL SCREENING REASON FOR EXAM: Female, 67 years old. Routine annual screening examination. PERTINENT HISTORY: Mother with breast cancer. History of prior bilateral breast reduction surgery and left stereotactic breast biopsy. TECHNIQUE: Digital bilateral breast cristhian (3D mammographic acquisition) in the CC and MLO projections. 2-D mediolateral oblique (MLO) and craniocaudad (CC) views of both breasts were obtained. CAD: Full Field Digital Mammography with Computer Added Detection was performed. COMPARISON: Comparison is made with prior study dated April 20, 2022 and January 14, 2021. FINDINGS: Breast Composition: The breasts are almost entirely fatty. There are no dominant masses or suspicious calcifications. Small bilateral benign-appearing axillary lymph nodes. A tissue clip marker is once again seen in the upper slightly lateral deep portion of the left breast No other significant abnormalities are identified. There has been no significant change since the prior study. BI/SCRN MAMM (CAD)W/CRISTHIAN BILAT IMPRESSION: Stable bilateral screening mammogram. Yearly follow-up mammogram recommended. (A) ASSESSMENT CATEGORY: BIRADS Category 2: Benign. A letter regarding these results will be sent to the patient by the facility within 30 days. Approximately 10% of breast cancers are not detected by mammography. A normal mammogram should not delay biopsy of a clinically suspicious abnormality. [id number] Electronically Signed: Cecilio Yoo MD at 8:30 EDT ,
== END | disposition home or self-care (01) ==
LOC: OPBI 06:57
PROVIDERS: PCP Family Medicine; Referring Provider Family Medicine; Visit Provider Family Medicine
DX: Z12.31 Encounter for screening mammogram for malignant neoplasm of breast (principal); Z80.3 Family history of malignant neoplasm of breast
CPT/HCPCS: 77063; 77067

== ENCOUNTER → 2023-09-28 | Outpatient (CLI) | payer MEDICARE, SELFPAY ==
[2023-09-28 12:40] LABS: Absolute Lymphocyte Count 1.99 X10^3/uL (0.83-4.51); Absolute Neutrophil Count 3.5 X10^3/uL (2.0-7.7); Basophil# 0.03 X10^3/uL; Basophil% 0.5 % (0-1); Eosinophil# 0.15 X10^3/uL; Eosinophils% 2.4 % (0-5); Hemoglobin 15.2 g/dL (12.0-15.0); Lymphocyte # 1.99 X10^3/ul (0.83-4.51); Lymphocyte % 31.2 % (19-41); Mean Corpuscular Hgb 30.6 pg (27.0-32.0); Mean Corpuscular Volume 92.7 fL (81-99); Mean Platelet Vol. 10.2 fl (6.2-12.0); Monocyte# 0.71 X10^3/uL; Monocyte% 11.1 % (0-10); NRBC Flagged by Analyzer 0 % (0-5); Neutrophil # 3.46 X10^3/uL (2.7-7.7); Neutrophil % 54.3 % (47-70); Platelet Count 244 K/mm3 (150-450); RBC Distribution Width SD 47.9 fl (35.1-43.9); Red Blood Count 4.96 M/mm3 (4.2-5.4); White Blood Count 6.4 K/mm3 (4.4-11.0)
[2023-09-28 12:53] LABS: ALB/GLOB Ratio 0.8 RATIO (0.9-2.4); AST(SGOT) 32 U/L (15-37); Alanine Aminotransfer ALT/SGPT 54 U/L (13-56); Albumin, Serum 3.5 g/dL (3.2-5.0); Alkaline Phosphatase 64 U/L (45-117); Anion Gap 7 (5-15); BUN 21 mg/dL (7-18); BUN/Creat Ratio 18.8 RATIO (10-20); Calcium,Total 9.7 mg/dL (8.5-10.1); Chloride 107 mmol/L (98-107); Cholesterol 220 mg/dL (200); Creatinine, Serum 1.12 mg/dL (0.55-1.02); EST Glomerular Filtration Rate 51 mL/min (>60); Est Glom Filt Rate - Afr Amer 62 mL/min (>60); Globulin 4.2 g/dL (2.2-4.2); Glucose 241 mg/dL (74-106); High Density Lipoprotein 39 mg/dL; Potassium 4.1 mmol/L (3.5-5.1); Protein, Total 7.7 g/dL (6.4-8.2); Sodium Level 140 mmol/L (136-145); Triglycerides 194 mg/dL; Very Low Density Lipoprotein 39 mg/dL (5-40)
== END | disposition home or self-care (01) ==
LOC: BIMLAB 09:55
PROVIDERS: PCP Family Medicine; Visit Provider Family Medicine
DX: K76.0 Fatty (change of) liver, not elsewhere classified (principal); E11.9 Type 2 diabetes mellitus without complications
CPT/HCPCS: 36415; 80053; 80061; 85025

== ENCOUNTER → 2024-02-08 | Outpatient (CLI) | payer MEDICARE, SELFPAY ==
--- NOTE | 2024-02-08 11:29 | NEURO ---
NCS and/or EMG Patient Report Ordering Doctor: George Ordoñez DATE OF SERVICE: 02/08/24 Clinical Summary: 65 year old female patient with symptoms of numbness in the left hand. Nerve Conduction Studies Summary: The left median-D2 SNAP distal latency was prolonged with reduced amplitude. The left ulnar-D5 SNAP distal latency was prolonged. The left median-APB CMAP distal latency was prolonged. The left ulnar motor conduction velocity was reduced across the elbow. Nerve conduction studies were normal. Needle Examination Summary: Needle examination demonstrated a higher proportion of motor unit action potentials with reduced recruitment, increased amplitude, increased duration, and polyphasia in the left abductor pollicis brevis muscle. Impression: There is electrodiagnostic evidence of the following - 1) Severe, left median mononeuropathy at the wrist (carpal tunnel syndrome), with secondary motor fiber axonal loss 2) Mild, left ulnar mononeuropathy at the elbow, with demyelinating features Multi Select Codes Neurology Neurology Interp Codes: 94963-45 Musc test done w/n test comp (interp) (1) and 00025-44 Nrv cndj tst 5-6 studies (interp)
== END | disposition home or self-care (01) ==
LOC: PSN 10:11
PROVIDERS: PCP Family Medicine; Referring Provider Physician Assistant; Visit Provider Physician Assistant
DX: G56.02 Carpal tunnel syndrome, left upper limb (principal)
CPT/HCPCS: 95886; 95909

== ENCOUNTER → 2024-03-10 | Outpatient (CLI) | payer MEDICARE, SELFPAY ==
[2024-03-10 12:25] LABS: Absolute Lymphocyte Count 2.34 X10^3/uL (0.83-4.51); Basophil# 0.04 X10^3/uL; Basophil% 0.6 % (0-1); Eosinophils% 2.8 % (0-5); Hematocrit 46.1 % (37-47); Hemoglobin 14.9 g/dL (12.0-15.0); Lymphocyte # 2.34 X10^3/ul (0.83-4.51); Lymphocyte % 32.9 % (19-41); Mean Corp Hgb Conc 32.3 g/dL (32-36); Mean Corpuscular Hgb 30.2 pg (27.0-32.0); Mean Corpuscular Volume 93.3 fL (81-99); Mean Platelet Vol. 9.4 fl (6.2-12.0); Monocyte# 0.55 X10^3/uL; Monocyte% 7.7 % (0-10); NRBC Flagged by Analyzer 0 % (0-5); Neutrophil # 3.96 X10^3/uL (2.7-7.7); Neutrophil % 55.7 % (47-70); Platelet Count 267 K/mm3 (150-450); RBC Distribution Width CV 14.6 % (11.6-14.6); RBC Distribution Width SD 49.9 fl (35.1-43.9); Red Blood Count 4.94 M/mm3 (4.2-5.4); White Blood Count 7.1 K/mm3 (4.4-11.0)
[2024-03-10 12:43] LABS: Hemoglobin A1c 6.7 % (3.8-5.6)
[2024-03-10 13:11] LABS: ALB/GLOB Ratio 0.8 RATIO (0.9-2.4); AST(SGOT) 23 U/L (15-37); Alanine Aminotransfer ALT/SGPT 40 U/L (13-56); Albumin, Serum 3.6 g/dL (3.2-5.0); Alkaline Phosphatase 55 U/L (45-117); Anion Gap 6 (5-15); BUN 11 mg/dL (7-18); BUN/Creat Ratio 13.6 RATIO (10-20); Chloride 108 mmol/L (98-107); Cholesterol 231 mg/dL (200); Creatinine, Serum 0.81 mg/dL (0.55-1.02); EST Glomerular Filtration Rate 75 mL/min (>60); Est Glom Filt Rate - Afr Amer 90 mL/min (>60); Globulin 4.3 g/dL (2.2-4.2); Glucose 134 mg/dL (74-106); High Density Lipoprotein 44 mg/dL; Potassium 4.1 mmol/L (3.5-5.1); Protein, Total 7.9 g/dL (6.4-8.2); Sodium Level 139 mmol/L (136-145); Triglycerides 137 mg/dL; Very Low Density Lipoprotein 27 mg/dL (5-40)
== END | disposition home or self-care (01) ==
LOC: LAB 11:59
PROVIDERS: PCP Family Medicine; Referring Provider Physician Assistant; Visit Provider Physician Assistant
DX: E11.9 Type 2 diabetes mellitus without complications (principal); E66.9 Obesity, unspecified
CPT/HCPCS: 36415; 80053; 80061; 83036; 84443; 85025

== ENCOUNTER 2024-03-21 05:53 | Day surgery (SDC) | payer MEDICARE, SELFPAY ==
[2024-03-21] VITALS (9 sets, daily range): BP systolic 101–147; BP diastolic 52–62; PULSE 57–87; RESP 14–16; TEMP 36.1–36.3; O2SAT 91–98; BMI 41.2
[2024-03-21] MEDS: Lactated Ringers 1,000 ML 15 ML IV (06:36)
--- NOTE | 2024-03-21 06:59 | PCM.PRE.AN2 ---
ASA Classification* ASA Classification ASA Classification: 2 Assessment & Plan Anesthesia* Anesthesia Assessment Anesthesia Assessment: Discussed sedation and/or anesthesia options, risks, benefits, and alternatives with patient/parents/legal guardian/POA. Questions invited. The patient/parents/legal guardian/POA seems to understand and agrees to proceed with anesthesia plan. Reviewed the physical assessment, medical history, allergy history and patient home medications list prior to surgery/procedure/anesthetic and documented any changes. Performed airway and anesthesia risk assessments. Anesthesia Type Anesthesia Type: MAC Anesthesia Focused Assessment* Temperature: 97.0 F Pulse Rate: 57 Blood Pressure: 147/60 Respiratory Rate: 16 Pulse Ox: 98 Airway Assessment Mouth opens: >3 cm Mallampati Score: II Focused Labs Anesthesia Preop lab: CBC WBC 7.1 K/mm3 (4.4-11.0) 03/10/24 12:10 RBC 4.94 M/mm3 (4.2-5.4) 03/10/24 12:10 Hgb 14.9 g/dL (12.0-15.0) 03/10/24 12:10 Hct 46.1 % (37-47) 03/10/24 12:10 Plt Count 267 K/mm3 (150-450) 03/10/24 12:10 CHEMISTRY Potassium 4.1 mmol/L (3.5-5.1) 03/10/24 12:10 Sodium 139 mmol/L (136-145) 03/10/24 12:10 BUN 11 mg/dL (7-18) 03/10/24 12:10 Creatinine 0.81 mg/dL (0.55-1.02) 03/10/24 12:10 Glucose 134 mg/dL (74-106) H 03/10/24 12:10 POC Glucose 144 mg/dL (70-110) H 05/30/20 08:29 TSH 1.090 uIU/mL (0.358-3.740) 03/10/24 12:10 COAG Pre-Assessment Diagnosis/Proposed Procedure Planned Operative Procedure(s): LEFT OPEN CARPAL TUNNEL RELEASE Anesthesia History Anesthesia History - oim consultant: Anesthesia History - oim consultant Hx Hospitalization No 03/20/24 10:02 Any Problems With Anesthesia No 03/20/24 10:02 Cholinesterase deficiency No 03/20/24 10:02 You/Your Family Experience No 03/20/24 10:02 fever (hyperthermia) with Relationship Recent Exposure to Contagious No 03/21/24 06:31 Disease Does patient have nerve No 03/20/24 10:02 stimulator Patient instructed to have device shut off --Does patient have Pacemaker No 03/21/24 06:33 or ICD? When Was Last Pacemaker Check QUESTION #4 FULL TEXT: You/Your Family Experience fever (hyperthermia) with Anesthesia Last Oral Intake Last Oral intake: Last Oral Intake NPO since 00:00 03/21/24 06:33 Meds taken in AM with sips of Yes 03/21/24 06:33 water? Meds patient instructed to lisinpril 03/21/24 06:33 take am of surgery PONV PONV - oim consultant: PONV - oim consultant Female Yes 03/20/24 10:02 HX of Motion Sickness Yes 03/20/24 10:02 HX of N/V After Surgery No 03/20/24 10:02 Non-Smoker Yes 03/20/24 10:02 Duration of Surgery greater No 03/20/24 10:02 than 60 minutes Number of Risk Factors 3 03/20/24 10:02 PONV Score Moderate Risk 03/20/24 10:02 Height & Weight Height & Weight: Anesthesia: Height & Weight Height 5 ft 4 in 03/21/24 06:33 Weight: 109 kg 03/21/24 06:33 Body Mass Index (BMI) 41.2 03/21/24 06:33 Respiratory Assessment Respiratory Assessment - oim consultant: Respiratory Tract Infection Hx - oim consultant Hx Respiratory Tract Infection No 03/20/24 10:02 STOP Sleep Apnea STOP Sleep Apnea - oim consultant: STOP Sleep Apnea - oim consultant Hx Hypertension Yes: CONTROLLED WITH MED 03/20/24 10:02 Hx Sleep Apnea Yes 03/20/24 10:02 CPAP Yes 03/20/24 10:02 BIPAP No 03/20/24 10:02 Do you snore loudly (louder than talking or can be heard Do you often feel tired/ fatigued/ sleepy during daytime? Has anyone observed you stop breathing during sleep? STOP Results Positive 03/20/24 10:02 QUESTION #5 FULL TEXT : Do you snore loudly (louder than talking or can be heard through closed doors)? 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 Specify any problems Hx of Preganancy in last 3 No 03/20/24 10:02 Months Nurse Filling Out Transfusion DSCHRIBER 03/20/24 10:02 & Questions: Date: 03/20/24 03/20/24 10:02 Time: 10:04 03/20/24 10:02 Patient unable to answer at this time (ie. confused, unrespo /Reproduction History /Reproductive History - oim consultant: /Reproductive Hx- oim consultant Hx Now No 03/20/24 10:02 Gestational Age (in weeks): EDC: Hx Hx Para Hx Section SAB No 03/20/24 10:02 Active Medications Active Medications: Current Medications Generic Name Dose Route Start Last Admin Trade Name Freq PRN Reason Stop Dose Admin Cefazolin Sodium 2 gm/ Sodium 110 mls @ 150 mls/hr 03/21/24 07:30 Chloride IV 03/21/24 08:13 PREOP ONE Lactated Ringer's 1,000 mls @ 15 mls/hr 03/21/24 06:15 03/21/24 06:36 IV 15 mls/hr .Q48H GERMÁN Administration PFSH Medical History (Updated 03/20/24 @ 10:09 by Naomi Park) Loss of hearing Wears glasses Wears dentures Post-menopausal Arthritis Fatty liver High cholesterol Phlebitis Back pain Dietary restriction CPAP (continuous positive airway pressure) dependence History of pain when walking History of edema Arthritis of spine Cervical spondylosis Diabetic neuropathy Sleep apnea Diabetes mellitus Osteoarthritis Seasonal allergies Hypertension Home Medications ?Medication ?Instructions ?Recorded ?Last Taken ?Type acetaminophen 650 mg 2 tab PO DAILY PRN Pain 1-10 Or 06/07/17 03/20/24 History tablet,extended release Fever aspirin 81 mg tablet,delayed 81 mg PO DAILY 03/23/18 03/16/24 History release flash glucose scanning reader #1 ea 10/23/20 Unknown Rx (FreeStyle Aleksandra 14 Day [place]) CPAP hose and mask #1 ea 10/16/21 Unknown Rx CPAP supplies #1 ea 10/16/21 Unknown Rx lisinopril 10 mg tablet 10 mg PO DAILY #90 tabs 04/15/23 03/21/24 Rx dapagliflozin propanediol 10 mg 10 mg PO QAM #90 tabs 09/28/23 03/20/24 Rx tablet (Farxiga) flash glucose sensor (FreeStyle #4 ea 09/28/23 Unknown Rx Aleksandra 14 Day Sensor kit) furosemide 20 mg tablet 20 mg PO DAILY #90 tabs 09/28/23 03/20/24 Rx glipizide 5 mg tablet, extended 5 mg PO DAILY #90 tabs 09/28/23 03/20/24 Rx release 24 hr Lactobacillus rhamnosus-Bifidobac. 1 cap PO DAILY 03/10/24 Unknown History animalis 3 billion cell capsule ([employer]) cholecalciferol (vitamin D3) 125 125 mcg PO DAILY 03/10/24 03/20/24 History mcg (5,000 unit) capsule elderberry fruit 350 mg capsule 700 mg PO DAILY 03/10/24 03/20/24 History fexofenadine 60 mg tablet (Tamara 60 mg PO DAILY 03/10/24 03/20/24 History Allergy) Allergy/AdvReac Type Severity Reaction Status Date / Time nickel Allergy Intermediate Other Verified 03/20/24 09:59 hydrochlorothiazide (From Allergy Unknown Unknown Verified 03/20/24 09:59 Dyazide) triamterene (From Dyazide) Allergy Unknown Unknown Verified 03/20/24 09:59 animal dander Allergy Sneezing, Verified 03/20/24 09:59 watery/itchy eyes bacitracin (From Neosporin Allergy Rash Verified 03/20/24 09:59 ([id number])) Environmental Allergies: Allergy headache Verified 03/20/24 09:59 Uncoded latex Allergy Hives Verified 03/20/24 09:59 neomycin (From Neosporin Allergy Rash Verified 03/20/24 09:59 ([id number])) polymyxin B (From Neosporin Allergy Rash Verified 03/20/24 09:59 ([id number])) Sulfa (Sulfonamide Allergy Unknown Verified 03/20/24 09:59 Antibiotics) cobalt AdvReac Intermediate Other Verified 03/20/24 09:59 celecoxib (From Celebrex) AdvReac Other Verified 03/20/24 09:59 mushroom AdvReac Nausea/Vom/ Verified 03/20/24 09:59 Diarrhea perfume AdvReac headache Verified 03/20/24 09:59 Family History Mother Breast cancer Hypertension Sister Asthma Surgical History (Updated 03/20/24 @ 10:09 by Naomi Park) Hx of colonoscopy History of carpal tunnel surgery S/P left breast biopsy History of bilateral breast reduction surgery History of cholecystectomy History of knee replacement Social History (Updated 03/10/24 @ 10:39 by Fabiana Guerra) household members: spouse Smoking Status: Former smoker how long ago did patient quit smokin alcohol intake: never substance use type: does not use what type of physical activity do you participate in: none do you feel safe at home: Yes Review of Systems (Anesthesia) ROS Narrative System reviewed and no additional complaints, except as documented.
[2024-03-21 07:04] LABS: Bedside Glucose 140 mg/dL (74-106)
[2024-03-21] MEDS: Cefazolin 2 GM in 0.9% Normal Saline (100mL Bag) 100 ML IV (07:30)
--- NOTE | 2024-03-21 07:30 | HP.PCM_ITS ---
History and Physical Date of Admission: 03/21/24 [facility] [address] [place] [address] OFFICE VISIT Date of Service: 03/10/24 MR#: [id number] Acct: [id number] Name: DARIANA ORTEGA Rep #: [id number] : 1955 Provider: Dr. Chirag Marino DO Age/Sex: 68/F Location: [facility] [place].[facility] Status: Signed Intake Vital Signs 01/04/2414:28 03/10/2410:35 Height 5 ft 4 in 5 ft 4 in Weight: 245 lb 237 lb BMI 42.0 40.6 BP 120/76 Blood Pressure Location Lt brachial Position Sitting Respiration 14 Pulse 64 Pulse Source Monitor Temp 97.2 F L Temp Source Temporal Pulse Oximetry (%) 95 Oxygen Delivery Method room air Intake Visit Reasons: LEFT HAND Chief Complaint: Left hand carpal tunnel Accompanied by: Is patient in pain?: Yes Pain scale (1-10): 6 Allergies nickel Allergy (Intermediate, Verified 03/10/24 10:24) Otherhydrochlorothiazide (From Dyazide) Allergy (Unknown, Verified 01/05/24 14:19) Unknowntriamterene (From Dyazide) Allergy (Unknown, Verified 01/05/24 14:19) Unknownanimal dander Allergy (Verified 03/10/24 10:24) Sneezing, watery/itchy eyesbacitracin (From Neosporin ([id number])) Allergy (Verified 03/10/24 10:24) RashEnvironmental Allergies: Uncoded Allergy (Verified 03/10/24 10:24) headachelatex Allergy (Verified 01/05/24 14:19) Hivesneomycin (From Neosporin ([id number])) Allergy (Verified 01/05/24 14:19) Rashpolymyxin B (From Neosporin ([id number])) Allergy (Verified 01/05/24 14:19) RashSulfa (Sulfonamide Antibiotics) Allergy (Verified 01/05/24 14:19) Unknowncobalt Adverse Reaction (Intermediate, Verified 01/05/24 14:19) Othercelecoxib (From Celebrex) Adverse Reaction (Verified 03/10/24 10:24) Othermushroom Adverse Reaction (Verified 03/10/24 10:24) Nausea/Vom/Diarrheaperfume Adverse Reaction (Verified 03/10/24 10:24) headache Medications ?Medication ?Instructions ?Recorded ?Confirmed ?Type acetaminophen 650 mg 2 tab PO DAILY PRN Pain 1-10 Or 06/07/17 03/10/24 History tablet,extended release Fever aspirin 81 mg tablet,delayed 81 mg PO DAILY 03/23/18 03/10/24 History release flash glucose scanning reader #1 ea 10/23/20 01/05/24 Rx (FreeStyle Aleksandra 14 Day [place]) CPAP hose and mask #1 ea 10/16/21 01/05/24 Rx CPAP supplies #1 ea 10/16/21 01/05/24 Rx lisinopril 10 mg tablet 10 mg PO DAILY #90 tabs 04/15/23 03/10/24 Rx dapagliflozin propanediol 10 mg 10 mg PO QAM #90 tabs 09/28/23 03/10/24 Rx tablet ([facility]) flash glucose sensor (FreeStyle #4 ea 09/28/23 01/05/24 Rx Aleksandra 14 Day Sensor kit) furosemide 20 mg tablet 20 mg PO DAILY #90 tabs 09/28/23 03/10/24 Rx glipizide 5 mg tablet, extended 5 mg PO DAILY #90 tabs 09/28/23 03/10/24 Rx release 24 hr Lactobacillus rhamnosus-Bifidobac. 1 cap PO DAILY 03/10/24 03/10/24 History animalis 3 billion cell capsule ([employer]) cholecalciferol (vitamin D3) 125 125 mcg PO DAILY 03/10/24 03/10/24 History mcg (5,000 unit) capsule elderberry fruit 350 mg capsule 700 mg PO DAILY 03/10/24 03/10/24 History fexofenadine 60 mg tablet (Tamara 60 mg PO BID 03/10/24 03/10/24 History Allergy) Have you fallen in the past year?: No [facility] Medical History (Updated 03/10/24 @ 11:[address] Chirag Marino, DO) Arthritis of spine Cervical spondylosis Diabetic neuropathy Sleep apnea Diabetes mellitus Osteoarthritis Seasonal allergies Hypertension Surgical History (Updated 03/10/24 @ 10:29 by Fabiana Guerra) History of carpal tunnel surgery S/P left breast biopsy History of bilateral breast reduction surgery History of cholecystectomy History of knee replacement Family History Mother Breast cancer HypertensionSister Asthma Social History household members: spouse Smoking Status: Former smoker how long ago did patient quit smokin alcohol intake: never substance use type: does not use what type of physical activity do you participate in: none do you feel safe at home: Yes HPI LEFT HAND Details: This documentation accurately reflects the service provided and the decisions made by me, Dr. Chirag Marino, DO 03/10/24 0754. Part of today?s visit was documented by Luly BLUE, acting as scribe. DARIANA ORTEGA is a 68 year old F here today for left wrist carpal tunnel. Sx started many months ago. Initially wore wrist brace and compression glove while working without relief. 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 Left hand and radial 3 digits sparing the ulnar 2 digits numbn ess and tingling or electric shock that radiates to hand and forearm. Left hand weakness. Reports recent nerve testing at [facility]. Denies hx surgery to left hand or wrist. Denies hx injections left wrist. Denies hx PT/OT. Her hand has been bothering her for 6+ months. She states that when she picks things up she gets shooting pains into her radial 3 fingers. She did have a right carpal tunnel release in 2005 and did well. Ortho Exam General General: Yes no acute distress Neurologic: Yes alert and Yes oriented x3 Psychologic: Yes reasonable and appropriate Right Wrist/Hand Skin/Wound: No Swelling and No Ecchymosis Left Wrist/Hand Skin/Wound: No Swelling, No Ecchymosis, Yes nail intact, Yes capillary refill normal and No erythema Left Wrist: Yes ROM-Extension 0-60, Yes ROM-Flexion 0-80, Yes ROM-Pronation 0-80 and Yes ROM-Supination 0-90 WRIST: numbness in radial 3 but mainly the thumb at baseline provocative maneuvers not performed No gross motor deficit palpable radial pulse 5 out of 5 finger abduction She has no Tinel's or positive direct compression hyperflexion tests at the elbow Head: Normocephalic Atraumatic Chest: symmetrical rise, non-labored breathing, no audible wheeze Abdomen: no guarding, non-rigid Supplemental Info 02/08/2024 EMG left upper extremity: 1) Severe, left median mononeuropathy at the wrist (carpal tunnel syndrome), with secondary motor fiber axonal loss 2) Mild, left ulnar mononeuropathy at the elbow, with demyelinating features Coding Level of Care Code Off vis,new,level 3 Diagnoses Left carpal tunnel syndrome G56.02 Cubital tunnel syndrome on left G56.22 Assessment and Plan Assessment and Plan (1) Left carpal tunnel syndrome: Status: Acute (2) Cubital tunnel syndrome on left: Status: Acute Plan Reviewed EMG today with patient and informed her that is does show severe carpal tunnel syndrome of the left had. She also has a mild cubital tunnel however is not really symptomatic with that. Advised patient that if she has a carpal tunnel release there is a chance that it doesn't get any better due to the severity and axonal loss. There is also risk of incisional hypersensitivity pillar pain postoperative weightbearing restrictions wrist that symptoms do not improve or worsen risk of bleeding infection nerve artery tissue damage need for further surgery and stiffness. Reviewed restrictions with patient which are for the first 2 weeks is .5 lbs then the 3rd week is 5 pounds. Patient wishes to proceed with left open carpal tunnel release. Follow up at 2 weeks post-op or sooner if pain, swelling, numbness or associated symptoms, or concerns develop. All questions answered. Patient in agreement of plan. Clinical Quality Measures Falls Risk Screening/Assistive Devices Have you fallen in the past year?: No 03/10/24 1142 <Electronically signed by Chirag Marino DO> Date Chirag Marino DO I have examined the patient and the H&P has been reviewed. There are no clinical changes since date of exam.
[2024-03-21] MEDS: Bupiv/Epi 0.25% 30 ML Vial (07:41)
--- NOTE | 2024-03-21 07:58 | OP.PCM_ITS ---
Operative Report Date of Procedure: 03/21/24 Preoperative diagnosis; left carpal tunnel syndrome Postoperative diagnosis; same Procedure: Left open carpal tunnel release Anesthesia: Local with MAC Tourniquet time; 10 minutes 250 mm Hg Complications: None Indication for procedure; This is a 68-year-old female with long-standing sym ptoms consistent with carpal tunnel syndrome the patient did have electrodiagnostic evidence of this and has failed conservative treatment. Risks benefits and alternatives were reviewed including risks of bleeding infection nerve artery tissue damage need for further surgery and continued pain and symptoms, hypersensitivity to scar and Pillar pain. Procedure; The patient was met in the preoperative holding area the operative extremity was identified by both patient and physician and was marked the patient was met by anesthesia and brought back to the operating room and transferred to the operating table in the supine position. Anesthesia was started. A well-padded tourniquet was placed on the operative upper extremity. The patient was prepped and draped in the usual sterile fashion. A timeout was called to ensure the proper patient procedure and extremity were being contemplated. 0.5 percent lidocaine with epinephrine was injected into the incisional area. An Esmarch was used to exsanguinate the extremity. The tourniquet was inflated to 250 mmHg. A midline incision was made with a 15 blade scalpel between the thenar and hypothenar eminence. This was carried down through the skin and subcutaneous tissue. Riana retractors were then used, a deep blade scalpel was used to make a deep incision in the palmar aponeurosis. The riana retractors were then placed deep to this and the transverse carpal ligament was identified a perforation was made with a scalpel and a Littler scissors were used to complete the release of the transverse carpal ligament distally under direct visualization with the tips facing ulnarly until the perivascular fat was reached. Then turning our attention proximally using a tension slide technique the proximal extent of the transverse carpal ligament was released . There was noted to be hypertrophy of the transverse carpal ligament without other findings. The wound was thoroughly irrigated and was closed with 4-0 nylon vertical mattress stitches. Dressing was applied in the form of xeroform 4 x 4, web roll and an ham wrap. Tourniquet was let down there is no intraoperative complications patient tolerated the procedure well and was transferred to the PACU. All counts were correct.
--- NOTE | 2024-03-21 07:58 | EX.PCM.DISCH ---
Discharge Instructions Diet Discharge Diet: No restrictions Activity Additional Activity Instructions:: Ice and elevate operative extremity next 72 hours. Keep dressing on clean and dry for 48 hours then may remove and allow warm soapy water to rinse over incision but do not submerge until sutures are out. Then apply bandaid over incision and change daily. encourage finger range of motion. Not lift more than 1/2 pound. Minimize narcotic use only as needed and directed, may use OTC NSAID and Tylenol to supplement/substitute for pain control. Dressing / Incision Call your doctor if you observe: Shortness of breath and Chest pain Additional Dressing/Incision Instructions:: Ice and elevate operative extremity next 72 hours. Keep dressing on clean and dry for 48 hours then may remove and allow warm soapy water to rinse over incision but do not submerge until sutures are out. Then apply bandaid over incision and change daily. encourage finger range of motion. Not lift more than 1/2 pound. Minimize narcotic use only as needed and directed, may use OTC NSAID and Tylenol to supplement/substitute for pain control. Follow Up Care Please Follow Up With: Chirag Marino DO When: 2 weeks Test Results: Test results from this visit will be discussed in further detail at your follow-up appointment, if applicable. Discharge Plan Admission Primary Reason for Your Visit: Left carpal tunnel release Attending Provider: Chirag Marino Primary Care Provider: Kj Johnson Instructions Print Language: Latvian Discharge Orders/Prescriptions Prescriptions: New oxycodone 5 mg tablet 5 - 10 mg PO Q6H PRN (Reason: pain) 7 Days Qty: 10 0RF No Action aspirin 81 mg tablet,delayed release (DR/EC) 81 mg PO DAILY (DME) FreeStyle Aleksandra 14 Day [place] Misc See Rx Instructions .ROUTE .MEDSUPPLY Qty: 1 0RF Rx Instructions: As directed lisinopril 10 mg tablet 10 mg PO DAILY Qty: 90 3RF glipizide 5 mg tablet extended release 24hr 5 mg PO DAILY Qty: 90 1RF furosemide 20 mg tablet 20 mg PO DAILY Qty: 90 3RF (DME) FreeStyle Aleksandra 14 Day Sensor Kit See Rx Instructions .ROUTE .COMPLEX Qty: 4 10RF Dose Instruction: USE TO CHECK BLOOD SUGAR DIRECTED. CHANGE SENSOR EVERY 14 DAYS Rx Instructions: USE TO CHECK BLOOD SUGAR DIRECTED. CHANGE SENSOR EVERY 14 DAYS dapagliflozin propanediol [Farxiga] 10 mg tablet 10 mg PO QAM Qty: 90 3RF fexofenadine [Tamara Allergy] 60 mg tablet 60 mg PO DAILY cholecalciferol (vitamin D3) 125 mcg (5,000 unit) capsule 125 mcg PO DAILY elderberry fruit 350 mg capsule 700 mg PO DAILY [employer] 3 billion cell capsule 1 cap PO DAILY acetaminophen 650 MG tablet extended release 2 tab PO DAILY PRN (Reason: Pain 1-10 Or Fever) (DME) CPAP supplies Qty: 1 0RF Rx Instructions: As directed (DME) CPAP hose and mask Qty: 1 3RF Dose Instruction: As directed Rx Instructions: As directed Referrals / Follow Up: Kj Johnson DO [Primary Care Provider] - Disposition Disposition (needs filled in before D/C Order can be placed): Home, Self Care
--- NOTE | 2024-03-21 09:31 | PCM.POST.ANE ---
Anesthesia: Postop Eval I Current Vital Signs Temperature: 97.2 F Pulse Rate: 72 Blood Pressure: 101/52 Respiratory Rate: 14 Pulse Ox: 95 Oxygen Delivery Method: Room Air Assessment Airway patent: Yes Spontaneous unlabored respirations: Yes Mental status: Awake nausea: No Vomiting: No Anesthesia Complication: No Fluid Hydration Crystalloid volume administer (ml): 100 Total IV fluid infused: 100 Progress Note Anesthesia document: Postop Eval 1 completed: Yes
--- NOTE | 2024-03-21 09:32 | PCM.POSTANE2 ---
Anesthesia Postop Eval I Sum Postop Eval Completion status Anesthesia document: Postop Eval 1 completed: Yes Anesthesia Postop Eval I Summary Anesthesia Postop Eval I Summary: Anesthesia Postop Eval I: Assessment Summary Airway patent Yes 03/21/24 09:32 Spontaneous unlabored Yes 03/21/24 09:32 respirations Mental status Awake 03/21/24 09:32 nausea No 03/21/24 09:32 Vomiting No 03/21/24 09:32 Anesthesia Postop Eval I: Fluid Summary Crystalloid volume administer 100 03/21/24 09:32 (ml) Colloids volume administered ( ml) Blood Product volume administered (ml) Total IV fluid infused 100 03/21/24 09:32 Anesthesia Postop Eval I: Summary Notes Anesthesia Complication No 03/21/24 09:32 Anesthesia Complication Comment: Post-operative progress note Anesthesia: Postop Eval II Evaluation Mental status: Awake Pain Level: 0 nausea: No Vomiting: No
--- NOTE | 2024-03-21 12:30 | PCM.POST.ANE ---
Anesthesia: Postop Eval I Current Vital Signs Temperature: 97.3 F Pulse Rate: 85 Blood Pressure: 144/62 Respiratory Rate: 14 Pulse Ox: 93 Oxygen Delivery Method: Room Air Assessment Airway patent: Yes Spontaneous unlabored respirations: Yes Mental status: Awake and Calm nausea: No Vomiting: No Anesthesia Complication: No Fluid Hydration Crystalloid volume administer (ml): 400 Total IV fluid infused: 400 Progress Note Anesthesia document: Postop Eval 1 completed: Yes
== END 2024-03-21 08:42 | disposition home or self-care (01) ==
LOC: SDC 05:53 → AC 05:55
PROVIDERS: PCP Family Medicine; Referring Provider Orthopaedic Surgery; Visit Provider Orthopaedic Surgery
PROC: (CPT 64721; principal; 2024-03-21 07:15)
DX: G56.02 Carpal tunnel syndrome, left upper limb (principal); E11.40 Type 2 diabetes mellitus with diabetic neuropathy, unspecified; I10 Essential (primary) hypertension; Z87.891 Personal history of nicotine dependence; Z79.84 Long term (current) use of oral hypoglycemic drugs; G56.22 Lesion of ulnar nerve, left upper limb; Z79.82 Long term (current) use of aspirin; Z90.49 Acquired absence of other specified parts of digestive tract; Z86.16 Personal history of COVID-19
CPT/HCPCS: 64721; 01810; 82962; J7120; J2405

== ENCOUNTER → 2024-05-22 | Outpatient (CLI) | payer MEDICARE, SELFPAY ==
--- NOTE | 2024-05-22 09:56 | BI_ITS ---
MAMMOGRAPHY - BILATERAL SCREENING REASON FOR EXAM: Female, 68 years old. Routine annual screening examination. PERTINENT HISTORY: Mother with breast cancer. Prior left stereotactic breast biopsy and prior bilateral breast reduction surgery. TECHNIQUE: Digital bilateral breast cristhian (3D mammographic acquisition) in the CC and MLO projections. 2-D mediolateral oblique (MLO) and craniocaudad (CC) views of both breasts were obtained. CAD: Full Field Digital Mammography with Computer Added Detection was performed. COMPARISON: Comparison is made with prior study dated May 19, 2023 and April 20, 2022. FINDINGS: Breast Composition: The breasts are almost entirely fatty. There are no dominant masses or suspicious calcifications. Stable bilateral fat containing axillary lymph nodes. No other significant abnormalities are identified. There has been no significant change since the prior study. BI/SCRN MAMM (CAD)W/CRISTHIAN BILAT IMPRESSION: Stable bilateral screening mammogram. Yearly follow-up mammogram recommended. (A) ASSESSMENT CATEGORY: BIRADS Category 2: Benign. A letter regarding these results will be sent to the patient by the facility within 30 days. Approximately 10% of breast cancers are not detected by mammography. A normal mammogram should not delay biopsy of a clinically suspicious abnormality. [id number] Electronically Signed: Cecilio Yoo MD at 10:46 EDT ,
== END | disposition home or self-care (01) ==
LOC: OPBI 09:55
PROVIDERS: PCP Family Medicine; Referring Provider Physician Assistant; Visit Provider Physician Assistant
DX: Z12.31 Encounter for screening mammogram for malignant neoplasm of breast (principal); Z80.3 Family history of malignant neoplasm of breast
CPT/HCPCS: 77063; 77067

== ENCOUNTER → 2025-01-30 | Outpatient (CLI) | payer MEDICARE, SELFPAY ==
[2025-01-30 13:04] LABS: AST(SGOT) 26 U/L (<=31); Alanine Aminotransfer ALT/SGPT 41 U/L (<=34); Albumin, Serum 4.0 g/dL (3.4-4.8); Alkaline Phosphatase 52 U/L (35-104); Anion Gap 12 (5-15); BUN 13 mg/dL (4-19); BUN/Creat Ratio 20.2 RATIO (10-20); Calcium,Total 9.3 mg/dL (7.6-11.0); Carbon Dioxide 20.9 mmol/L (21.0-32.0); Chloride 108 mmol/L (98-108); Cholesterol 214 mg/dL (<=200); Globulin 3.1 g/dL (2.2-4.2); Glucose 163 mg/dL (70-99); Low Density Lipoprotein Calc. 143 mg/dL; Potassium 4.1 mmol/L (3.3-5.1); Triglycerides 158 mg/dL; Very Low Density Lipoprotein 32 mg/dL (5-40); cholesterol:hdl ratio screen 5.39
[2025-01-31 19:17] LABS: Creatinine, Urine (random) 83.50 mg/dL (28.00-217.00)
[2025-01-31 19:21] LABS: Microalbumin,Random Urine < 12.0 mg/L (NO RANGE EST.)
== END | disposition home or self-care (01) ==
LOC: BIMLAB 10:19
PROVIDERS: PCP Family Medicine; Referring Provider Family Medicine; Visit Provider Family Medicine
DX: E11.40 Type 2 diabetes mellitus with diabetic neuropathy, unspecified (principal)
CPT/HCPCS: 36415; 80053; 80061; 82043; 82570

== ENCOUNTER → 2025-05-23 | Outpatient (CLI) | payer MEDICARE, SELFPAY ==
--- NOTE | 2025-05-23 12:15 | BI_ITS ---
EXAM: SCRN MAMM (CAD)W/CRISTHIAN BILAT DATE: 05/23/2025 CLINICAL HISTORY: F, Age 69 y/o , SCREENING Mother with breast cancer. History of prior bilateral breast reduction surgery and left stereotactic breast biopsy. TECHNIQUE: Procedure Code: [id number] Modality: MG Procedure: SCRN MAMM (CAD)W/CRISTHIAN BILAT COMPARISON: Prior exam(s) dated May 22, 2024.. FINDINGS: TISSUE DENSITY: The breasts are almost entirely fatty. Bilateral Breast Mammographic Findings: No significant masses, calcifications or other abnormalities are identified. A tissue clip marker is seen in the deep upper lateral aspect of the left breast. Stable small bilateral fat containing axillary lymph nodes. No suspicious masses, areas of developing architectural distortion, or suspicious calcifications. There has been no significant interval change. BI/SCRN MAMM (CAD)W/CRISTHIAN BILAT IMPRESSION: Stable bilateral screening mammogram. OVERALL FINAL ASSESSMENT BI-RADS 2: BENIGN RECOMMENDATION: Routine annual follow-up in 1 Year Additional Recommendation none A letter with findings and recommendations will be mailed to the patient. Reading Location: [id number]
== END | disposition home or self-care (01) ==
LOC: OPBI 11:59
PROVIDERS: PCP Family Medicine; Referring Provider Family Medicine; Visit Provider Family Medicine
DX: Z12.31 Encounter for screening mammogram for malignant neoplasm of breast (principal)
CPT/HCPCS: 77063; 77067